=== PATIENT | female | born 1970 | race Caucasian/White ===

== ENCOUNTER 2017-11-02 14:24 | Outpatient (CLI) | payer OTHER ==
[2017-11-02] MEDS ORDERED: Gadobenate Dimeglumine 529 MG/1 ML (20ML VIAL) ONE (14:52)
--- NOTE | 2017-11-02 16:26 | MRI ---
LUMBAR SPINE MRI WITHOUT CONTRAST 11/02/17 HISTORY: Lumbar radiculopathy. COMPARISON: None. TECHNIQUE: Lumbar spine MRI is performed without intravenous gadolinium administration. Multisequential, multipl marjorie imaging is performed. FINDINGS: Appropriate T1 marrow signal intensity of the lumbar vertebrae. Lumbar spine vertebral body height is maintained. There is no fracture. No significant STIR hyperintensity to suggest edema or ligamentous injury. No abnormal enhancement of the vertebral bodies. There is no abnormal enhancement within the thecal sac including the cauda equina or conus medullaris. Symmetric signal intensity to the psoas m uscles. Appropriate signal intensity of the visualized solid organs. Conus medullaris terminates at the mid T 12 level. T12-L1: No significant central canal stenosis or foraminal narrowing. L1-L2: No significant central canal stenosis or neural foraminal narrowing. L2-L3: No significant central canal stenosis or foraminal narrowing. L3-L4: No significant central canal stenosis or foraminal narrowing. L4-L5: Desiccation with mild loss of disc space height. There is a central/left subarticular disc pro trusion. Disc material abuts and displaces the traversing left L5 nerve root with resultant partial o bscuration. There is also some mass effect upon the traversing left S1 nerve root. There is a left si ded hemilaminotomy defect. Minimal scar tissue is suggested. There is some scar tissue extending into the left subarticular zone which also compounds the mass effect and obscuration of the traversing le ft L5 nerve root, just inferior to the disc space. Overall, there is mild central canal stenosis. Mil d posterior element hypertrophy. Mild bilateral foraminal narrowing. L5-S1: Adequate disc hydration. No significant posterior disc abnormality. Minimal ligamentum flavum thickening and facet hypertrophy. No significant central canal stenosis. Neural foramina are patent. There is minimal narrowing of the left subarticular zone without significant mass effect upon the tra versing left S1 nerve root. IMPRESSION: Abnormal signal intensity in the left subarticular tone at the L4-5 level due to disc material as wel l as scar tissue. There is mass effect and obscuration of the traversing left L5 and to a lesser exte nt left S1 nerve root due to disc material and scar tissue. POS: [facility]
== END 2017-11-02 14:25 | disposition home or self-care (01) ==
LOC: TBSIIMAG 14:24
PROVIDERS: ATTEND Neurological Surgery
DX: M54.16 Radiculopathy, lumbar region (principal); R93.7 Abnormal findings on diagnostic imaging of other parts of musculoskeletal system
CPT/HCPCS: 72158; A9579

== ENCOUNTER 2018-04-21 13:58 | Outpatient (CLI) | payer OTHER ==
[2018-04-21 15:25] LABS: Hemoglobin 13.6 g/dL (12.0-16.0); Mean Corpuscular HGB CONC 33.4 g/dL (32.0-36.0); Mean Corpuscular Hemoglobin 28.6 pg (27.0-31.0); Mean Corpuscular Volume 85.4 fL (78.0-98.0); Mean Platelet Volume 7.7 fL (7.4-10.4); Platelet Count 247 thou/uL (130-400); RBC Distribution Width 12.1 % (11.5-14.5); Red Blood Cell (RBC) Count 4.77 mill/uL (4.20-5.40); White Blood Cell (WBC) Count 7.2 thou/uL (4.8-10.8)
[2018-04-21 15:56] LABS: Anion Gap 14 mmol/L (10-20); BUN (Urea Nitrogen) 10 mg/dL (7.0-18.7); Calc. Creatinine Clearance 0 mL/min (70-130); Calcium 9.3 mg/dL (7.8-10.44); Carbon Dioxide 23 mmol/L (22-29); Chloride 95 mmol/L (98-107); Estimated GFR-MDRD 66; Glucose 412 mg/dL (70-105); Potassium 4.8 mmol/L (3.5-5.1); Sodium 127 mmol/L (136-145)
--- NOTE | 2018-04-24 17:44 | EKG ---
Test Reason : Blood Pressure : / mmHG Vent. Rate : 062 BPM Atrial Rate : 062 BPM P-R Int : 136 ms QRS Dur : 086 ms QT Int : 426 ms P-R-T Axes : 035 048 -21 degrees QTc Int : 432 ms Normal sinus rhythm with sinus arrhythmia Anterior infarct , age undetermined T wave abnormality, consider inferior ischemia Abnormal ECG When compared with ECG of 25-SEP-2016 00:06, Anterior infarct is now Present Minimal criteria for Inferior infarct are no longer Present T wave inversion now evident in Inferior leads Confirmed by BRIGID POLANCO (2) on 04/24/2018 5:43:38 PM Referred By: AMBER Confirmed By:BRIGID POLANCO
== END 2018-04-21 13:59 | disposition home or self-care (01) ==
LOC: LABBT 13:58
PROVIDERS: ATTEND Neurological Surgery
DX: Z01.818 Encounter for other preprocedural examination (principal); M54.16 Radiculopathy, lumbar region
CPT/HCPCS: 80048; 85027; 93005; 93010

== ENCOUNTER 2018-04-21 14:00 | Inpatient (IN) | payer OTHER ==
[2018-04-21 14:10] VITALS: BMI 32.8
[2018-04-25] MEDS ORDERED: CEFAZOLIN/Water 2 GM/20 ML SYRINGE ONE (10:04)
[2018-04-25] MEDS ORDERED: Sodium Chloride 0.9% 10 ML ONE (10:35)
[2018-04-25] MEDS ORDERED: Midazolam HCl 2 mg/2 ml Vial ONE (10:44)
[2018-04-25] MEDS ORDERED: Fentanyl 250 MCG/5 ML VIAL ONE (10:44)
[2018-04-25] MEDS ORDERED: Insulin Regular 300 UNITS/3 ML VIAL ONE (10:53)
[2018-04-25] MEDS ORDERED: Promethazine HCl 25 MG/ML VIAL SLOW IVP PRN (12:06)
[2018-04-25] MEDS ORDERED: Ondansetron HCl/PF 4 MG/2 ML Vial IVP PRN ×2 (12:06→14:35)
[2018-04-25] MEDS ORDERED: Promethazine HCl 25 MG/ML VIAL IM PRN ×2 (12:06→14:33)
[2018-04-25] MEDS ORDERED: Fentanyl 100 MCG/2 ML VIAL ONE ×2 (12:29→12:46)
[2018-04-25] MEDS ORDERED: PROPOFOL 200 MG/20 ML VIAL ONE (13:00)
[2018-04-25] MEDS ORDERED: Glycopyrrolate 0.2 MG/ML 5 ML SYRINGE ONE (13:00)
[2018-04-25] MEDS ORDERED: ePHEDrine/0.9% NaCl/PF SYRINGE 50 mg/10 ml ONE (13:00)
[2018-04-25] MEDS ORDERED: Ondansetron HCl/PF 4 MG/2 ML Vial ONE (13:00)
[2018-04-25] MEDS ORDERED: Lidocaine 1% PF 5 ML VIAL ONE (13:00)
--- NOTE | 2018-04-25 13:14 | OP ---
DATE OF PROCEDURE: 04/25/2018 SURGEON: Ej Cortés M.D. PAPER WINDER: Maximino Smiley PA-C PROCEDURE: Left L4-5 laminectomy, facetectomy, foraminotomy, and discectomy, interbody arthrodesis, intravertebral biomechanical device, local morselized autograft, demineralized bone matrix, posterior lateral arthrodesis and pedicle screw instrumentation L4-L5. PROCEDURE IN DETAIL: The patient was brought to the operating room and intubated. She was rolled in the prone position on gel-filled chest rolls. Incision made exposing L4 and L5 and our level was co nfirmed by x-ray. We performed left L4-5 laminectomy, facetectomy, and foraminotomy then removed and a herniated disk. A complete decompression of left L5 was achieved. The disc itself was incised an d debrided and the bony endplates decorticated for the purpose of arthrodesis. An appropriate sized intravertebral biomechanical PEEK device was brought into the field, filled with demineralized bone m atrix, local morselized autograft, and tapped into place securely at L4-5. Next, pedicle screws were placed at left L4 and left L5 using lateral fluoroscopic guidance and the positioning was confirmed with x-ray. Sourav was secured between the screws, connected by nuts which were final tightened. The w ound was then extensively irrigated, immaculate hemostasis was secured. A combination of demineraliz ed bone matrix, local morselized autograft was laid in the right laminar and posterolateral surfaces for the purpose of arthrodesis. Vancomycin powder was applied and the wound was closed in anatomic l frost.
[2018-04-25] MEDS ORDERED: HYDROcodone/Acetaminophen 10/325 mg Tablet PO PRN (14:33)
[2018-04-25] MEDS ORDERED: Promethazine HCl 12.5 MG SUPP PR PRN (14:33)
[2018-04-25] MEDS ORDERED: Promethazine 25 MG TAB PO PRN (14:33)
[2018-04-25] MEDS ORDERED: diphenhydrAMINE 25 MG CAP PO PRN (14:33)
[2018-04-25] MEDS ORDERED: Mag-Al 1200 mg/1200 mg/30 ML UDCUP PO PRN (14:33)
[2018-04-25] MEDS ORDERED: Milk Of Magnesia 30 ML UDCUP PO PRN (14:33)
[2018-04-25] MEDS ORDERED: diphenhydrAMINE 50 MG/ML VIAL IVP PRN (14:33)
[2018-04-25] MEDS ORDERED: tiZANidine HCl 4 MG TAB PO PRN ×2 (14:33→14:53)
[2018-04-25] MEDS ORDERED: traMADol HCl 50 MG TAB PO PRN ×2 (14:33)
[2018-04-25] MEDS ORDERED: Acetaminophen/Codeine 30-300mg Tablet PO PRN (14:46)
[2018-04-25] MEDS ORDERED: Insulin NPH/Reg Insulin Hm 300 UNITS/3 ML VIAL SC PRN (14:49)
[2018-04-25] MEDS: HYDROcodone/Acetaminophen 10/325 mg Tablet PO PRN ×2 (15:10→20:10)
[2018-04-25] MEDS ORDERED: Lisinopril 20 MG TAB PO SCH (15:45)
[2018-04-25] MEDS: Sodium Chloride 0.9% 1,000 ML IV SCH (17:04)
[2018-04-25] MEDS: Pregabalin 50 MG CAP PO SCH (20:12)
[2018-04-25] MEDS: metFORMIN 500 MG TAB PO SCH (20:12)
[2018-04-25] MEDS: Insulin Glargine 45 UNITS in Pre-Filled Syringe 1 EACH SC SCH (20:13)
[2018-04-25] MEDS: Metoprolol Tartrate 100 MG TAB PO SCH (20:13)
[2018-04-25] MEDS: Morphine 4 MG/ML VIAL SLOW IVP PRN (20:22)
[2018-04-25] MEDS ORDERED: Atorvastatin Calcium 40 MG TAB PO SCH (21:00)
[2018-04-25] MEDS ORDERED: traZODone HCl 50 MG TAB PO SCH (21:00)
[2018-04-25] MEDS: CEFAZOLIN/Water 2 GM/20 ML SYRINGE SLOW IVP SCH (22:08)
[2018-04-26] MEDS: Morphine 4 MG/ML VIAL SLOW IVP PRN ×2 (00:51→06:12)
[2018-04-26] MEDS: HYDROcodone/Acetaminophen 10/325 mg Tablet PO PRN ×2 (02:52→08:05)
[2018-04-26] MEDS: Sodium Chloride 0.9% 1,000 ML IV SCH (04:29)
[2018-04-26] MEDS: CEFAZOLIN/Water 2 GM/20 ML SYRINGE SLOW IVP SCH (05:55)
[2018-04-26 07:43] VITALS: BP 113/66; TEMP 98.4
--- NOTE | 2018-04-26 07:51 | DIS ---
DATE OF ADMISSION: 04/25/2018 DATE OF DISCHARGE: 04/26/2018 ATTENDING PHYSICIAN: Dr. Ej Cortés [facility] COURSE: The patient is a 47-year-old female status post L4-L5 decompression and f usion. Her postoperative course was uncomplicated. Her pain was well controlled with p.o. medicatio ns, she was tolerating regular diet, and she was voiding appropriately. The following morning, there was small amount of dark red blood on the dressing, but there appears to be no active drainage. I d iscussed incisional care with b.i.d. dressing changes and anticipate this will continue to resolve wi th time. I have discussed home care precautions. We will plan to follow up with the patient carmelina garrison 2 weeks in the office. She has been provided with scripts for hydrocodone, Zanaflex and Kefle x. Please reach out to Neurosurgery for additional questions or concerns.
[2018-04-26] MEDS: Pregabalin 50 MG CAP PO SCH (08:04)
[2018-04-26] MEDS: metFORMIN 500 MG TAB PO SCH (08:05)
[2018-04-26] MEDS: Metoprolol Tartrate 100 MG TAB PO SCH (08:06)
[2018-04-26] MEDS: Insulin Glargine 45 UNITS in Pre-Filled Syringe 1 EACH SC SCH (08:07)
[2018-04-26] MEDS ORDERED: Lisinopril 20 MG TAB PO SCH (09:00)
== END 2018-04-26 09:15 | disposition home or self-care (01) | DRG 455 ==
LOC: SURG A 04-25 07:53
PROVIDERS: ADMIT Neurological Surgery; ATTEND Neurological Surgery
PROC: 01NB3ZZ Release Lumbar Nerve, Percutaneous Approach (ICD-10-PCS; principal; 2018-04-25)
PROC: 0SG03AJ Fusion of Lumbar Vertebral Joint with Interbody Fusion Device, Posterior Approach, Anterior Column, Percutaneous Approach (ICD-10-PCS; 2018-04-25)
PROC: 0SG03J1 Fusion of Lumbar Vertebral Joint with Synthetic Substitute, Posterior Approach, Posterior Column, Percutaneous Approach (ICD-10-PCS; 2018-04-25)
PROC: 0SB23ZZ Excision of Lumbar Vertebral Disc, Percutaneous Approach (ICD-10-PCS; 2018-04-25)
DX: M54.16 Radiculopathy, lumbar region (principal); M51.26 Other intervertebral disc displacement, lumbar region
CPT/HCPCS: 36416; 76001; A4216; C1713; C1768; J1815; J2250; J2270; J3010; J3370; J3490

== ENCOUNTER 2018-05-11 09:51 | Outpatient (CLI) | payer OTHER ==
--- NOTE | 2018-05-11 11:33 | RAD ---
LUMBAR SPINE TWO VIEWS: HISTORY: A 47-year-old female with a history of low back pain and lumbar degenerative disk disease. Follow up surgery. FINDINGS: Left-sided pedicle screws are noted at L4 and L5 with an intradiskal prosthesis. No significant arnulfo lignment. IMPRESSION: 1. Mild generalized spondylosis. 2. Postoperative pedicle screw placement changes at L4-L5 with associated laminectomy and intradiska l prosthesis. 3. No malalignment. POS: [facility]
== END 2018-05-11 09:52 | disposition home or self-care (01) ==
LOC: TBSIIMAG 09:51
PROVIDERS: ATTEND Neurological Surgery
DX: M51.36 Other intervertebral disc degeneration, lumbar region (principal); M47.896 Other spondylosis, lumbar region; Z98.1 Arthrodesis status
CPT/HCPCS: 72100

== ENCOUNTER 2018-06-15 14:03 | Outpatient (CLI) | payer OTHER ==
--- NOTE | 2018-06-15 15:20 | RAD ---
LUMBAR SPINE TWO VIEWS: History: Intervertebral disc degeneration. Low back pain. Comparison: 05-11-18 FINDINGS: Screws and rods are seen on the left at L4-5. Interbody implant at L4-5. The posterior markers on this interbody implant show evidence of posterior migration when compared to the exam of 05-11-18. The most posterior marker now resides within the spinal canal. No other significant change. IMPRESSION: 1. Post-operative changes again noted. There has been posterior migration of the interbody implant at L4-5 as described above. POS: [facility]
== END 2018-06-15 14:04 | disposition home or self-care (01) ==
LOC: TBSIIMAG 14:03
PROVIDERS: ATTEND Neurological Surgery
DX: M51.36 Other intervertebral disc degeneration, lumbar region (principal); T84.428A Displacement of other internal orthopedic devices, implants and grafts, initial encounter
CPT/HCPCS: 72100

== ENCOUNTER 2018-07-11 08:06 | Inpatient (IN) | payer OTHER ==
[2018-07-08 11:53] VITALS: BMI 33.3
[2018-07-11] MEDS ORDERED: CEFAZOLIN 2 GM/50 ML BAG ONE (08:34)
[2018-07-11] MEDS ORDERED: Insulin Regular 300 UNITS/3 ML VIAL ONE (09:34)
[2018-07-11 09:38] LABS: Hemoglobin 14.5 g/dL (12.0-16.0); Mean Corpuscular HGB CONC 33.5 g/dL (32.0-36.0); Mean Corpuscular Hemoglobin 28.2 pg (27.0-31.0); Mean Corpuscular Volume 84.1 fL (78.0-98.0); Mean Platelet Volume 7.9 fL (7.4-10.4); Platelet Count 247 thou/uL (130-400); RBC Distribution Width 11.5 % (11.5-14.5); Red Blood Cell (RBC) Count 5.13 mill/uL (4.20-5.40); White Blood Cell (WBC) Count 7.6 thou/uL (4.8-10.8)
[2018-07-11 09:53] LABS: Anion Gap 15 mmol/L (10-20); BUN (Urea Nitrogen) 13 mg/dL (7.0-18.7); Calc. Creatinine Clearance 121 mL/min (70-130); Calcium 9.6 mg/dL (7.8-10.44); Carbon Dioxide 28 mmol/L (22-29); Chloride 93 mmol/L (98-107); Estimated GFR-MDRD 68; Glucose 488 mg/dL (70-105); Potassium 4.6 mmol/L (3.5-5.1); Sodium 131 mmol/L (136-145)
[2018-07-11] MEDS ORDERED: Sodium Chloride 0.9% 10 ML ONE (11:26)
[2018-07-11] MEDS ORDERED: Fentanyl 100 MCG/2 ML VIAL ONE ×4 (11:36→14:51)
[2018-07-11] MEDS ORDERED: KETAMINE 100 MG/ML (5ML VIAL) ONE (12:26)
[2018-07-11] MEDS ORDERED: PACU-Morphine 4MG/ML VIAL SLOW IVP PRN (13:12)
[2018-07-11] MEDS ORDERED: Meperidine HCl/PF 25 MG/ML VIAL SLOW IVP PRN (13:12)
[2018-07-11] MEDS ORDERED: Ondansetron HCl/PF 4 MG/2 ML Vial IVP PRN (13:12)
[2018-07-11] MEDS ORDERED: Morphine Sulfate 2 MG/ML SYRINGE SLOW IVP PRN (13:12)
[2018-07-11] MEDS ORDERED: HYDROmorphone 2 MG/ML VIAL SLOW IVP PRN (13:12)
[2018-07-11] MEDS ORDERED: Promethazine HCl 25 MG/ML VIAL IM PRN ×2 (13:12→14:32)
[2018-07-11] MEDS ORDERED: Promethazine HCl 25 MG/ML VIAL SLOW IVP PRN (13:12)
[2018-07-11] MEDS ORDERED: HYDROmorphone 2 MG/ML VIAL ONE (13:32)
[2018-07-11] MEDS ORDERED: Promethazine 25 MG TAB PO PRN (14:32)
[2018-07-11] MEDS ORDERED: diphenhydrAMINE 50 MG/ML VIAL IVP PRN (14:32)
[2018-07-11] MEDS ORDERED: diphenhydrAMINE 25 MG CAP PO PRN (14:32)
[2018-07-11] MEDS ORDERED: Ondansetron PF 4 MG/2 ML Vial IM PRN (14:32)
[2018-07-11] MEDS ORDERED: Milk Of Magnesia 30 ML UDCUP PO PRN (14:32)
[2018-07-11] MEDS ORDERED: traMADol HCl 50 MG TAB PO PRN ×2 (14:32)
[2018-07-11] MEDS ORDERED: Mag-Al 1200 mg/1200 mg/30 ML UDCUP PO PRN (14:32)
[2018-07-11] MEDS ORDERED: HYDROcodone/Acetaminophen 10/325 mg Tablet PO PRN (14:32)
[2018-07-11] MEDS ORDERED: Promethazine HCl 12.5 MG SUPP PR PRN (14:32)
--- NOTE | 2018-07-11 14:37 | OP ---
DATE OF PROCEDURE: 07/11/2018 [facility] [facility] DIRECTOR: [place]. PROCEDURES PERFORMED: Removal of hardware at L5-S1, exploration of spinal fusion at L5-S1, pedicle screw instrumentation at L5-S1, BMP cancellous bone chips. DESCRIPTION OF PROCEDURE: The patient was brought to the operating room and intubated. She was rolled in prone position on gel flat chest rolls. The previous incision was reopened and the wound exposed bilaterally. We explored the spinal fusion. There was no evidence of any bony fusion. We explored the hardware and found the left L5 screw to be loose. We removed the nuts and rods and removed the left L5 screw. We then removed the L4-L5 interbody device, which appeared to have migrated slightly. We next placed a large diameter and longer in length left L5 screw with good purchase. This was secured by damien to the L4 screws and connected by nuts, which were final tightened. The posterolateral surfaces were prepared for the first arthrodesis and a combination of BMP on Gelfoam with cancellous bone chips was laid over the lateral and posterolateral surfaces on the right for the first arthrodesis. Vancomycin powder was applied and the wound was closed in anatomic layers. Job ID: [id number]
[2018-07-11] MEDS: Sodium Chloride 0.9% 1,000 ML IV SCH ×2 (15:58→20:35)
[2018-07-11] MEDS: HYDROcodone/Acetaminophen 10/325 mg Tablet PO PRN ×2 (16:13→21:56)
[2018-07-11] MEDS: tiZANidine HCl 4 MG TAB PO PRN (19:23)
[2018-07-11] MEDS ORDERED: Dextrose 50% Abboject 50 ML SYRINGE IVP PRN (19:42)
[2018-07-11] MEDS ORDERED: Dextrose 5% in Water 1,000 ML IV PRN (19:42)
[2018-07-11] MEDS: CEFAZOLIN 2 GM/50 ML-DEXTROSE 2 GM in Premix Bag 1 BAG IVPB SCH (20:24)
[2018-07-11] MEDS: Morphine 4 MG/ML VIAL SLOW IVP PRN (20:27)
[2018-07-11] MEDS: Insulin Regular 300 UNITS/3 ML VIAL SC PRN (21:52)
[2018-07-12] MEDS: Morphine 4 MG/ML VIAL SLOW IVP PRN ×8 (00:28→20:25)
[2018-07-12] MEDS: tiZANidine HCl 4 MG TAB PO PRN (00:29)
[2018-07-12] MEDS: CEFAZOLIN 2 GM/50 ML-DEXTROSE 2 GM in Premix Bag 1 BAG IVPB SCH (03:15)
[2018-07-12] MEDS: HYDROcodone/Acetaminophen 10/325 mg Tablet PO PRN ×3 (03:47→21:57)
[2018-07-12] MEDS ORDERED: tiZANidine HCl 4 MG TAB PO PRN (04:14)
[2018-07-12] MEDS ORDERED: Insulin NPH/Reg Insulin Hm 300 UNITS/3 ML VIAL SC SCH (04:15)
[2018-07-12] MEDS ORDERED: Metoprolol Tartrate 50 MG TAB PO SCH (04:30)
[2018-07-12] MEDS ORDERED: Pregabalin 50 MG CAP PO SCH (04:30)
[2018-07-12] MEDS: Insulin Regular 300 UNITS/3 ML VIAL SC PRN ×3 (07:04→18:48)
[2018-07-12] MEDS ORDERED: Diabetic Tussin 200 MG/10 ML UDCUP PO PRN (07:44)
[2018-07-12] MEDS ORDERED: Senokot S 8.6-50 MG TAB PO PRN (07:44)
[2018-07-12] MEDS ORDERED: Cepastat Lozenges 1 LOZ PO PRN (07:44)
[2018-07-12] MEDS ORDERED: Artificial Tears 18 DROP/0.9 ML EA EYE PRN (07:44)
[2018-07-12] MEDS ORDERED: Dextrose 5% in Water 1,000 ML IV PRN (07:44)
[2018-07-12] MEDS ORDERED: Loperamide HCl 2 MG CAP PO PRN (07:44)
[2018-07-12] MEDS ORDERED: hydrALAZINE 20 MG/ML VIAL SLOW IVP PRN (07:44)
[2018-07-12] MEDS ORDERED: Insulin Regular 300 UNITS/3 ML VIAL SC PRN (07:44)
[2018-07-12] MEDS ORDERED: Eucerin (Mineral Oil/Petrolatum,White) 30 gm Jar TOP PRN (07:44)
[2018-07-12] MEDS ORDERED: Bisacodyl 5 MG TAB PO PRN (07:44)
[2018-07-12] MEDS: metFORMIN 500 MG TAB PO SCH ×2 (08:20→18:28)
[2018-07-12] MEDS: Lisinopril 20 MG TAB PO SCH (08:20)
[2018-07-12] MEDS ORDERED: Non-Formulary Item 1 EACH (Insulin Glargine,Hum.Rec.Anlog [Lantus Solostar] 45 UNIT) SC SCH (09:00)
[2018-07-12] MEDS: Insulin Glargine 45 UNITS in Pre-Filled Syringe 1 EACH SC SCH ×2 (09:21→21:50)
--- NOTE | 2018-07-12 11:36 | PDOC.PN ---
- Subjective Encounter Start Date: 07/12/18 Encounter Start Time: 06:50 -: old records requested/rev Patient seen and examined. No new complaints. No overnight events consulted for medical management - Objective Resuscitation Status - Order Detail: 07/12/18 07:42 Resuscitation Status Routine Resuscitation Status: FULL: Full Resuscitation MAR Reviewed: Yes Vital Signs & Weight: Vital Signs (12 hours) Temp Pulse Resp BP BP Pulse Ox 07/12/18 11:00 98.0 F 77 18 194/90 H 95 07/12/18 08:59 98 07/12/18 07:44 98.8 F 75 16 165/82 H 95 07/12/18 03:32 97.8 F 83 20 169/72 H 97 07/12/18 00:00 98.4 F 79 18 165/76 H 95 Weight Weight 219 lb I&O: 07/11/18 07/12/18 07/13/18 06:59 06:59 06:59 Intake Total 741 1860 Balance 741 1860 Result Diagrams: 07/11/18 09:09 07/11/18 09:09 Additional Labs: Accuchecks 07/12/18 07/12/18 07/11/18 10:59 06:58 21:23 POC Glucose 334 H 409 H 400 H 07/11/18 07/11/18 07/11/18 17:33 13:01 12:04 POC Glucose 302 H 210 H 186 H 07/11/18 07/11/18 07/11/18 11:18 10:42 10:11 POC Glucose 181 H 228 H 341 H 07/11/18 09:13 POC Glucose 449 H Phys Exam - Physical Examination Constitutional: NAD HEENT: PERRLA, moist MMs, sclera anicteric Neck: no JVD, supple Respiratory: no wheezing, no rales, no rhonchi Cardiovascular: RRR, no significant murmur, no rub Gastrointestinal: soft, non-tender, no distention, positive bowel sounds Musculoskeletal: no edema, pulses present Neurological: non-focal, normal sensation, moves all 4 limbs Psychiatric: normal affect, A&O x 3 Skin: no rash, normal turgor Dx/Plan (1) S/P hardware removal Code(s): Z98.890 - OTHER SPECIFIED POSTPROCEDURAL STATES Status: Acute (2) Anxiety and depression Code(s): F41.9 - ANXIETY DISORDER, UNSPECIFIED; F32.9 - MAJOR DEPRESSIVE DISORDER, SINGLE EPISODE, UNSPECIFIED Status: Chronic (3) Chronic low back pain Code(s): M54.5 - LOW BACK PAIN; G89.29 - OTHER CHRONIC PAIN Status: Chronic (4) Diabetes type 2, controlled Code(s): E11.9 - TYPE 2 DIABETES MELLITUS WITHOUT COMPLICATIONS Status: Chronic (5) Dyslipidemia Code(s): E78.5 - HYPERLIPIDEMIA, UNSPECIFIED Status: Chronic (6) GERD (gastroesophageal reflux disease) Code(s): K21.9 - GASTRO-ESOPHAGEAL REFLUX DISEASE WITHOUT ESOPHAGITIS Status: Chronic (7) Hypertension Code(s): I10 - ESSENTIAL (PRIMARY) HYPERTENSION Status: Chronic (8) Obesity (BMI 30.0-34.9) Code(s): E66.9 - OBESITY, UNSPECIFIED Status: Chronic (9) Tobacco abuse Code(s): Z72.0 - TOBACCO USE Status: Chronic - Plan cont current plan of care, plan discussed w/ family, PT/OT * home medication started * started levemir * will control diabetes * discussed with family * pain controlled * counselled to avoid smoking * medication reviewed as below * symptomatic treatment * code status addressed and she is full code. Review of Systems - Review of Systems Constitutional: negative: fever, chills, sweats, weakness, malaise, other Eyes: negative: Pain, Vision Change, Conjunctivae Inflammation, Eyelid Inflammation, Redness, Other ENT: negative: Ear Pain, Ear Discharge, Nose Pain, Nose Discharge, Nose Congestion, Mouth Pain, Mouth Swelling, Throat Pain, Throat Swelling, Other Respiratory: negative: Cough, Dry, Shortness of Breath, Hemoptysis, SOB with Excertion, Pleuritic Pain, Sputum, Wheezing Cardiovascular: negative: chest pain, palpitations, orthopnea, paroxysmal nocturnal dyspnea, edema, light headedness, other Gastrointestinal: negative: Nausea, Vomiting, Abdominal Pain, Diarrhea, Constipation, Melena, Hematochezia, Other Genitourinary: negative: Dysuria, Frequency, Incontinence, Hematuria, Retention , Other Musculoskeletal: Back Pain. negative: Neck Pain, Shoulder Pain, Arm Pain, Hand Pain, Leg Pain, Foot Pain, Other - Medications/Allergies Allergies/Adverse Reactions: Allergies Allergy/AdvReac Type Severity Reaction Status Date / Time lorazepam [From Ativan] Allergy Intermediate Verified 07/08/18 11:54 Medications: Current Medications Hydrocodone Bitart/Acetaminophen ([place] 10/325) 1 tab PO Q4H PRN PRN Reason: PAIN (1-3) Hydrocodone Bitart/Acetaminophen ([place] 10/325) 2 tab PO Q4H PRN PRN Reason: PAIN (4-6) Last Admin: 07/12/18 03:47 Dose: 2 tab Al Hydroxide/Mg Hydroxide (Maalox) 30 ml PO Q4H PRN PRN Reason: Heartburn or Indigestion Artificial Tears (Tears Naturale) 2 drop EA EYE PRN PRN PRN Reason: Dry Eyes Atorvastatin Calcium (Lipitor) 80 mg PO HS [facility] Bisacodyl (Dulcolax) 10 mg PO DAILYPRN PRN PRN Reason: Constipation Dextrose/Water (Dextrose 50%) 25 gm IVP PRN PRN PRN Reason: HYPOGLYCEMIA PROTOCOL Diphenhydramine HCl (Benadryl) 25 mg PO Q6H PRN PRN Reason: Itching Last Admin: 07/11/18 20:35 Dose: 25 mg Diphenhydramine HCl (Benadryl) 25 mg IVP Q6H PRN PRN Reason: Itching Glucagon (Glucagon) 1 mg IM PRN PRN PRN Reason: HYPOGLYCEMIA PROTOCOL Guaifenesin (Robitussin Sf) 200 mg PO Q4H PRN PRN Reason: Cough Hydralazine HCl (Apresoline) 10 mg SLOW IVP Q4H PRN PRN Reason: SBP > 180 and HR < 70 Insulin Glargine 45 units/ (Miscellaneous Medication) 0.45 mls @ 0 mls/hr SC BID [facility] Last Admin: 07/12/18 09:21 Dose: 0.45 mls Dextrose/Water (D5w) 1,000 mls @ 0 mls/hr IV .Q0M PRN PRN Reason: Hypoglycemia Insulin Human Isoph/Insulin Regular (Humulin 70/30) 0 units SC .ASDIR [facility] Insulin Human Regular (Humulin R) 0 units SC .MODERATE SLIDING SC PRN; Protocol PRN Reason: MODERATE SLIDING SCALE Last Admin: 07/12/18 07:04 Dose: 10 units Insulin Human Regular (Humulin R) 0 units SC .BEDTIME SLIDING SC PRN PRN Reason: Bedtime Correctional Scale Lisinopril (Zestril) 40 mg PO DAILY [facility] Last Admin: 07/12/18 08:20 Dose: 40 mg Loperamide HCl (Imodium) 2 mg PO PRN PRN PRN Reason: Diarrhea/Loose Stools [facility] Last Admin: 07/12/18 08:20 Dose: 1,000 mg Metoprolol Tartrate (Lopressor) 100 mg PO BID [facility] Mineral Oil/White Petrolatum (Eucerin Cream) 0 gm TOP BIDPRN PRN PRN Reason: Dry Skin Morphine Sulfate (Morphine) 2 mg SLOW IVP Q1H PRN PRN Reason: Moderate Breakthrough Pain Morphine Sulfate (Morphine) 4 mg SLOW IVP Q1H PRN PRN Reason: SEVERE BREAKTHROUGH PAIN Last Admin: 07/12/18 11:18 Dose: 4 mg Ondansetron HCl (Zofran) 4 mg IM Q24H PRN PRN Reason: Nausea/Vomiting Pantoprazole Sodium (Protonix) 40 mg PO [facility] Pregabalin (Lyrica) 200 mg PO BID [facility] Promethazine HCl (Phenergan) 12.5 mg IM Q4H PRN PRN Reason: Nausea/Vomiting Promethazine HCl (Phenergan) 12.5 mg PO Q4H PRN PRN Reason: Nausea/Vomiting Promethazine HCl (Phenergan Suppository) 12.5 mg [place] Q4H PRN PRN Reason: Nausea/Vomiting Senna/Docusate Sodium (Senokot S) 2 tab PO BID PRN PRN Reason: Constipation Sodium Chloride (Flush - Normal Saline) 10 ml IVF Q12HR [facility] Last Admin: 07/12/18 11:18 Dose: 10 ml Sodium Chloride (Flush - Normal Saline) 10 ml IVF PRN PRN PRN Reason: Saline Flush Throat Lozenges (Cepastat Lozenges) 1 melanie PO Q2H PRN PRN Reason: Sore Throat Tizanidine HCl (Zanaflex) 4 mg PO Q6H PRN PRN Reason: MUSCLE SPASM Last Admin: 07/12/18 00:29 Dose: 4 mg Tramadol HCl (Ultram) 50 mg PO Q6H PRN PRN Reason: PAIN (1-3) Tramadol HCl (Ultram) 100 mg PO Q6H PRN PRN Reason: PAIN (4-6) Trazodone HCl (Desyrel) 100 mg PO HS [facility] Venlafaxine HCl (Effexor) 75 mg PO BID [facility] Last Admin: 07/12/18 09:20 Dose: 75 mg
[2018-07-12] MEDS: Pregabalin 50 MG CAP PO SCH (20:24)
[2018-07-12] MEDS: Metoprolol Tartrate 50 MG TAB PO SCH (20:25)
[2018-07-12] MEDS ORDERED: traZODone HCl 50 MG TAB PO SCH (21:00)
[2018-07-12] MEDS ORDERED: Atorvastatin Calcium 40 MG TAB PO SCH (21:00)
[2018-07-13] MEDS: Morphine 4 MG/ML VIAL SLOW IVP PRN ×2 (01:13→06:43)
[2018-07-13] MEDS: Insulin Regular 300 UNITS/3 ML VIAL SC PRN (06:44)
[2018-07-13 08:33] VITALS: BP 98/59; TEMP 98.1
--- NOTE | 2018-07-13 09:46 | DIS ---
DATE OF ADMISSION: 07/11/2018 DATE OF DISCHARGE: 07/13/2018 DISCHARGE DISPOSITION: Home. PRIMARY DISCHARGE DIAGNOSIS: Status post lumbar fusion revision and hardware removal. SECONDARY DISCHARGE DIAGNOSES: 1. Anxiety. 2. Depression. 3. Chronic low back pain. 4. Diabetes type 2. 5. Dyslipidemia. 6. Gastroesophageal reflux disease. 7. Hypertension. 8. Obesity with BMI 33. 9. Tobacco abuse disorder. PRIMARY PROCEDURE/OPERATION: Removal of hardware L5-S1 and exploration of spinal fusion. LABORATORY DATA: Significant labs: WBC 7.6, hemoglobin 14.5, platelet 247. Sodium 131, potassium 4.6, BUN 13, creatinine 0.89, calcium 9.6. DISCHARGE MEDICATIONS: 1. Lipitor 80 mg p.o. at bedtime. 2. Aspirin 81 mg daily (hold this medication until cleared by neurosurgeon). 3. [place] 1 tablet q.6 hours p.r.n. 4. NovoLog 70/30 as per sliding scale. 5. Lantus insulin 45 units subcu b.i.d. 6. Lisinopril 40 mg daily. 7. Metformin 1000 mg p.o. b.i.d. 8. Lopressor 100 mg p.o. b.i.d. 9. Protonix 40 mg p.o. at bedtime. 10. Lyrica 200 mg p.o. b.i.d. 11. Zanaflex 4 mg q.6 hours p.r.n. 12. Trazodone 100 mg p.o. at bedtime. 13. Venlafaxine 75 mg p.o. b.i.d. CONTRAINDICATION: None. CODE STATUS: Full code. INPATIENT DELIVERY CREW WORKER: Dr. Cortés was primary while in the hospital. Sound Team was consulted for medical co-management. TEST RESULT PENDING ON DISCHARGE: None. ALLERGIES: LORAZEPAM. DISCHARGE PLAN: Post hospital, the patient will follow up with primary care physician Dr. Francisco Eden in one week and the patient will make appointment with Dr. Cortés as instructed. HOSPITAL COURSE: A 47-year-old female with above mentioned medical problem, who was electively admitted by Dr. Cortés. The patient underwent lumbar fusion revision with hardware removal. Postoperatively, Surgical Floor Sound Team was consulted for medical co-management. While in the hospital, the patient's medical problem remained stable. We continued with selected home medication while in the hospital as well as on discharge. Her pain was controlled with pain medication. Initially, her blood sugar was out of control, because she did not start her insulin, but after starting her insulin, her blood sugar started improving. Today, the patient is planned for discharge by primary team. I have seen and examined the patient at bedside today. Plan of care discussed with the patient and family member. REVIEW OF SYSTEMS: Reviewed and negative. PHYSICAL EXAMINATION: VITAL SIGNS: Currently, temperature 98.1, pulse 67, respiratory rate 16, saturation 93% on room air, blood pressure 111/57, weight 219 pounds. GENERAL: The patient is currently alert, awake, in no obvious acute distress. HEAD: Normocephalic, atraumatic. Eyes; pupils round, reactive to light. Extraocular muscle intact. ENT: Oropharynx within normal limits. Moist mucous membranes. No oral lesion. No pharyngeal erythema. No exudate. NECK: Supple. No JVD. No thyromegaly. No carotid bruit. LUNGS: Clear without any rhonchi or rales. CARDIAC: S1, S2 regular without any murmur. ABDOMEN: Soft and benign. EXTREMITIES: No edema. NEUROLOGIC: Nonfocal examination. CONDITION ON TRANSFER: The patient is medically stable for discharge today. Job ID: [id number]
--- NOTE | 2018-07-13 10:12 | PDOC.PN ---
- Subjective Encounter Start Date: 07/13/18 Encounter Start Time: 09:30 -: old records requested/rev Patient seen and examined. No new complaints. No overnight events - Objective Resuscitation Status - Order Detail: 07/12/18 07:42 Resuscitation Status Routine Resuscitation Status: FULL: Full Resuscitation MAR Reviewed: Yes Vital Signs & Weight: Vital Signs (12 hours) Temp Pulse Resp BP BP Pulse Ox 07/13/18 09:47 18 96 07/13/18 08:00 98.1 F 67 16 98/59 L 93 L 07/13/18 03:47 97.7 F 65 18 98/58 L 95 07/13/18 01:10 76 111/57 L Weight Weight 219 lb I&O: 07/12/18 07/13/18 07/14/18 06:59 06:59 06:59 Intake Total 741 2660 Balance 741 2660 Result Diagrams: 07/11/18 09:09 07/11/18 09:09 Additional Labs: Accuchecks 07/13/18 07/12/18 07/12/18 05:59 20:30 16:18 POC Glucose 238 H 239 H 195 H 07/12/18 10:59 POC Glucose 334 H Phys Exam - Physical Examination Constitutional: NAD HEENT: PERRLA, moist MMs, sclera anicteric Neck: no JVD, supple Respiratory: no wheezing, no rales, no rhonchi Cardiovascular: RRR, no significant murmur, no rub Gastrointestinal: soft, non-tender, no distention, positive bowel sounds Musculoskeletal: no edema, pulses present Neurological: non-focal, normal sensation Lymphatic: no nodes Psychiatric: normal affect, A&O x 3 Skin: no rash, normal turgor Dx/Plan (1) S/P hardware removal Code(s): Z98.890 - OTHER SPECIFIED POSTPROCEDURAL STATES Status: Acute (2) Anxiety and depression Code(s): F41.9 - ANXIETY DISORDER, UNSPECIFIED; F32.9 - MAJOR DEPRESSIVE DISORDER, SINGLE EPISODE, UNSPECIFIED Status: Chronic (3) Chronic low back pain Code(s): M54.5 - LOW BACK PAIN; G89.29 - OTHER CHRONIC PAIN Status: Chronic (4) Diabetes type 2, controlled Code(s): E11.9 - TYPE 2 DIABETES MELLITUS WITHOUT COMPLICATIONS Status: Chronic (5) Dyslipidemia Code(s): E78.5 - HYPERLIPIDEMIA, UNSPECIFIED Status: Chronic (6) GERD (gastroesophageal reflux disease) Code(s): K21.9 - GASTRO-ESOPHAGEAL REFLUX DISEASE WITHOUT ESOPHAGITIS Status: Chronic (7) Hypertension Code(s): I10 - ESSENTIAL (PRIMARY) HYPERTENSION Status: Chronic (8) Obesity (BMI 30.0-34.9) Code(s): E66.9 - OBESITY, UNSPECIFIED Status: Chronic (9) Tobacco abuse Code(s): Z72.0 - TOBACCO USE Status: Chronic - Plan cont current plan of care * medication reviewed as below * symptomatic treatment * see discharge aaron. Review of Systems - Review of Systems ENT: negative: Ear Pain, Ear Discharge, Nose Pain, Nose Discharge, Nose Congestion, Mouth Pain, Mouth Swelling, Throat Pain, Throat Swelling, Other Respiratory: negative: Cough, Dry, Shortness of Breath, Hemoptysis, SOB with Excertion, Pleuritic Pain, Sputum, Wheezing Cardiovascular: negative: chest pain, palpitations, orthopnea, paroxysmal nocturnal dyspnea, edema, light headedness, other Gastrointestinal: negative: Nausea, Vomiting, Abdominal Pain, Diarrhea, Constipation, Melena, Hematochezia, Other Genitourinary: negative: Dysuria, Frequency, Incontinence, Hematuria, Retention , Other Musculoskeletal: negative: Neck Pain, Shoulder Pain, Arm Pain, Back Pain, Hand Pain, Leg Pain, Foot Pain, Other Skin: negative: Rash, Lesions, Howie, Bruising, Other - Medications/Allergies Allergies/Adverse Reactions: Allergies Allergy/AdvReac Type Severity Reaction Status Date / Time lorazepam [From Ativan] Allergy Intermediate Verified 07/08/18 11:54 Medications: Current Medications Hydrocodone Bitart/Acetaminophen ([employer] 10/325) 1 tab PO Q4H PRN PRN Reason: PAIN (1-3) Hydrocodone Bitart/Acetaminophen ([employer] 10/325) 2 tab PO Q4H PRN PRN Reason: PAIN (4-6) Last Admin: 07/12/18 21:57 Dose: 2 tab Al Hydroxide/Mg Hydroxide (Maalox) 30 ml PO Q4H PRN PRN Reason: Heartburn or Indigestion Artificial Tears (Tears Naturale) 2 drop EA EYE PRN PRN PRN Reason: Dry Eyes Atorvastatin Calcium (Lipitor) 80 mg PO HS [facility] Last Admin: 07/12/18 20:23 Dose: 80 mg Bisacodyl (Dulcolax) 10 mg PO DAILYPRN PRN PRN Reason: Constipation Dextrose/Water (Dextrose 50%) 25 gm IVP PRN PRN PRN Reason: HYPOGLYCEMIA PROTOCOL Diphenhydramine HCl (Benadryl) 25 mg PO Q6H PRN PRN Reason: Itching Last Admin: 07/11/18 20:35 Dose: 25 mg Diphenhydramine HCl (Benadryl) 25 mg IVP Q6H PRN PRN Reason: Itching Glucagon (Glucagon) 1 mg IM PRN PRN PRN Reason: HYPOGLYCEMIA PROTOCOL Guaifenesin (Robitussin Sf) 200 mg PO Q4H PRN PRN Reason: Cough Hydralazine HCl (Apresoline) 10 mg SLOW IVP Q4H PRN PRN Reason: SBP > 180 and HR < 70 Insulin Glargine 45 units/ (Miscellaneous Medication) 0.45 mls @ 0 mls/hr SC BID [facility] Last Admin: 07/12/18 21:50 Dose: 0.45 mls Dextrose/Water (D5w) 1,000 mls @ 0 mls/hr IV .Q0M PRN PRN Reason: Hypoglycemia Insulin Human Regular (Humulin R) 0 units SC .MODERATE SLIDING SC PRN; Protocol PRN Reason: MODERATE SLIDING SCALE Last Admin: 07/13/18 06:44 Dose: 4 units Insulin Human Regular (Humulin R) 0 units SC .BEDTIME SLIDING SC PRN PRN Reason: Bedtime Correctional Scale Lisinopril (Zestril) 40 mg PO DAILY [facility] Last Admin: 07/12/18 08:20 Dose: 40 mg Loperamide HCl (Imodium) 2 mg PO PRN PRN PRN Reason: Diarrhea/Loose Stools Metformin HCl (Glucophage) 1,000 mg PO BID-[facility] Last Admin: 07/12/18 18:28 Dose: 1,000 mg Metoprolol Tartrate (Lopressor) 100 mg PO BID [facility] Last Admin: 07/12/18 20:25 Dose: 100 mg Mineral Oil/White Petrolatum (Eucerin Cream) 0 gm TOP BIDPRN PRN PRN Reason: Dry Skin Morphine Sulfate (Morphine) 2 mg SLOW IVP Q1H PRN PRN Reason: Moderate Breakthrough Pain Morphine Sulfate (Morphine) 4 mg SLOW IVP Q1H PRN PRN Reason: SEVERE BREAKTHROUGH PAIN Last Admin: 07/13/18 06:43 Dose: 4 mg Ondansetron HCl (Zofran) 4 mg IM Q24H PRN PRN Reason: Nausea/Vomiting Pantoprazole Sodium (Protonix) 40 mg PO HS [facility] Last Admin: 07/12/18 20:25 Dose: 40 mg Pregabalin (Lyrica) 200 mg PO BID [facility] Last Admin: 07/12/18 20:24 Dose: 200 mg Promethazine HCl (Phenergan) 12.5 mg IM Q4H PRN PRN Reason: Nausea/Vomiting Promethazine HCl (Phenergan) 12.5 mg PO Q4H PRN PRN Reason: Nausea/Vomiting Promethazine HCl (Phenergan Suppository) 12.5 mg MA Q4H PRN PRN Reason: Nausea/Vomiting Senna/Docusate Sodium (Senokot S) 2 tab PO BID PRN PRN Reason: Constipation Sodium Chloride (Flush - Normal Saline) 10 ml IVF Q12HR [facility] Last Admin: 07/12/18 11:18 Dose: 10 ml Sodium Chloride (Flush - Normal Saline) 10 ml IVF PRN PRN PRN Reason: Saline Flush Throat Lozenges (Cepastat Lozenges) 1 melanie PO Q2H PRN PRN Reason: Sore Throat Tizanidine HCl (Zanaflex) 4 mg PO Q6H PRN PRN Reason: MUSCLE SPASM Last Admin: 07/12/18 00:29 Dose: 4 mg Tramadol HCl (Ultram) 50 mg PO Q6H PRN PRN Reason: PAIN (1-3) Tramadol HCl (Ultram) 100 mg PO Q6H PRN PRN Reason: PAIN (4-6) Trazodone HCl (Desyrel) 100 mg PO HS [facility] Last Admin: 07/12/18 21:50 Dose: 100 mg Venlafaxine HCl (Effexor) 75 mg PO BID [facility] Last Admin: 07/12/18 20:23 Dose: 75 mg
[2018-07-13] MEDS: HYDROcodone/Acetaminophen 10/325 mg Tablet PO PRN (10:23)
[2018-07-13] MEDS: Pregabalin 50 MG CAP PO SCH (10:25)
[2018-07-13] MEDS: metFORMIN 500 MG TAB PO SCH (10:26)
[2018-07-13] MEDS: Lisinopril 20 MG TAB PO SCH (10:28)
[2018-07-13] MEDS: Metoprolol Tartrate 50 MG TAB PO SCH (10:29)
[2018-07-13] MEDS: Insulin Glargine 45 UNITS in Pre-Filled Syringe 1 EACH SC SCH (10:46)
--- NOTE | 2018-07-14 04:49 | DIS ---
DATE OF ADMISSION: 07/11/2018 DATE OF DISCHARGE: 07/13/2018 HOSPITAL COURSE: The patient is a 47-year-old female, who underwent removal of hardware and revision of lumbar fusion at L4-L5. Following her surgery, she was transitioned to the Med/Surg floor, where her pain was well controlled with p.o. medications, she was tolerating regular diet, and voiding appropriately. She mobilized with the assistance of PT and has been ambulating easily throughout the department. She has no overnight complaints at this time. She is sitting up in the bed, in no acute distress. Free active range of motion of all extremities. No focal motor weakness. She has had some mild incisional drainage, but there is no active drainage appreciated on the dressing at this time. Steady gait. We will plan to dismiss the patient to home. I have discussed home care precautions and will plan to follow up with the patient in 2 weeks in the office. Job ID: [id number]
== END 2018-07-13 12:26 | disposition home or self-care (01) | DRG 460 ==
LOC: SURG A 08:06 → SURG B 15:27
PROVIDERS: ADMIT Neurological Surgery; ATTEND Neurological Surgery
PROC: 0SG30K1 Fusion of Lumbosacral Joint with Nonautologous Tissue Substitute, Posterior Approach, Posterior Column, Open Approach (ICD-10-PCS; principal; 2018-07-11)
PROC: 0SP004Z Removal of Internal Fixation Device from Lumbar Vertebral Joint, Open Approach (ICD-10-PCS; 2018-07-11)
PROC: 3E0U0GB Introduction of Recombinant Bone Morphogenetic Protein into Joints, Open Approach (ICD-10-PCS; 2018-07-11)
DX: M54.16 Radiculopathy, lumbar region (principal); T84.226A Displacement of internal fixation device of vertebrae, initial encounter; I10 Essential (primary) hypertension; E11.65 Type 2 diabetes mellitus with hyperglycemia; E78.5 Hyperlipidemia, unspecified; F41.8 Other specified anxiety disorders; G89.29 Other chronic pain; F17.210 Nicotine dependence, cigarettes, uncomplicated; E66.9 Obesity, unspecified; Z68.33 Body mass index [BMI] 33.0-33.9, adult; Z79.4 Long term (current) use of insulin; Y83.1 Surgical operation with implant of artificial internal device as the cause of abnormal reaction of the patient, or of later complication, without mention of misadventure at the time of the procedure
CPT/HCPCS: 36415; 36416; 76001; 80048; 85027; 93005; 93010; C1713; G8978-GP-CK; G8979-GP-CI; J0131; J1170; J1200; J1815; J2270; J3010; J3370; J3490

== ENCOUNTER 2018-08-04 15:31 | Outpatient (CLI) | payer OTHER ==
--- NOTE | 2018-08-04 17:11 | RAD ---
TWO VIEWS LUMBAR SPINE 08/04/18 HISTORY: Lumbar radiculopathy, followup from surgery. COMPARISON: 06/15/18. FINDINGS: Unilateral left sided pedicle screws are again seen with interconnecting damien. No hardware complicatio n seen. The markers for the intradiscal prosthesis are no longer visualized. No fracture or subluxati on is seen. Vertebral body heights are within normal limits. No other interval change. IMPRESSION: Interval removal of the intradiscal prosthesis at the L4-5 level. Postsurgical changes related to pos terior fusion of the L4-5 level are again present and stable. POS: [facility]
== END 2018-08-04 15:32 | disposition home or self-care (01) ==
LOC: TBSIIMAG 15:31
PROVIDERS: ATTEND Neurological Surgery
DX: M54.16 Radiculopathy, lumbar region (principal); Z98.1 Arthrodesis status
CPT/HCPCS: 72100

== ENCOUNTER 2018-09-15 13:35 | Outpatient (CLI) | payer OTHER ==
--- NOTE | 2018-09-15 16:18 | RAD ---
LUMBAR SPINE 2 VIEWS: HISTORY: M54.5 lumbar pain. COMPARISON: Radiograph 08/03/2018. FINDINGS: Left unilateral posteriori damien and screw fixation of L4-5 is unchanged. No evidence for hardware isabel lure. Mild narrowing of L4-5 disk space and L5-S1 disk space. No diskectomy spacer is appreciated. Paraspinal soft tissues are unremarkable. IMPRESSION: Unchanged postoperative appearance. POS: [facility]
== END 2018-09-15 13:36 | disposition home or self-care (01) ==
LOC: TBSIIMAG 13:35
PROVIDERS: ATTEND Neurological Surgery
DX: M54.5 Low back pain (principal); Z98.890 Other specified postprocedural states
CPT/HCPCS: 72100

== ENCOUNTER 2018-10-14 06:55 | Day surgery (SDC) | payer OTHER ==
[2018-10-13 13:10] VITALS: BMI 33.3
[2018-10-14 07:59] VITALS: BP 162/76; TEMP 97.4
--- NOTE | 2018-10-14 09:11 | RAD ---
MYELOGRAM LUMBAR: 10/14/2018 HISTORY: A 48-year-old female with lumbar radiculopathy. TECHNIQUE: Signed informed consent obtained. The patient was placed prone on the fluoroscopy table. L1-L2 leve l selected, after review of prior MRI. Overlying skin prepared and draped in the usual sterile fashi on. A 25 gauge needle was used to apply buffered Lidocaine superficially and deeply. A 22 gauge spi nal needle was advanced from a left paramedian approach. Upon return of clear CSF, a total of 10 mL of Isovue-M 200 was injected intrathecally. The spinal needle was removed. The patient tolerated th e procedure well. No complications. FLUOROSCOPY TIME: 1.5 minutes. DAP: 405.2 Gy*m^2. FINDINGS: There are five lumbar type vertebrae. Vertebral body heights are maintained. Alignment is normal. No scoliosis. There are unilateral left pedicle screws at L4 and L5. Moderate disk space narrowing at L4-L5. No high-grade disk space narrowing at any other level. Fluoroscopic spot image demonstrates the spinal needle tip overlying the left paramedial L1-L2 level, and contrast material distributed normally within the thecal sac of the lumbar spine. IMPRESSION: 1. Successful lumbar myelogram. 2. See separate report of subsequent CT lumbar myelogram. POS: [facility]
--- NOTE | 2018-10-14 11:14 | CT ---
CT LUMBAR SPINE WITH CONTRAST: (CT LUMBAR MYELOGRAM) 10/14/2018 HISTORY: A 48-year-old female with left lumbar radiculopathy. FINDINGS: There is fat stranding, consistent with edema, in the retroperitoneum, beginning approximately at the level of the origins of the bilateral renal arteries, then throughout infrarenal periaortic distribu tion, then following the bilateral common iliac and internal iliac vessels in the pelvis. Incidental ly, a normal appendix is visualized. No scoliosis or spondylolisthesis. Vertebral body heights are maintained. T11-T12: Essentially normal. T12-L1: Normal. The conus medullaris terminates at the L1 level. L1-L2: Normal. L2-L3: Normal. L3-L4: Normal. L4-L5: Mild disk space narrowing. Unilateral left pedicle screws at L4 and L5. The medial edge of the left L4 screw does traverse the far peripheral edge of the left side of the spinal canal minimall y, but the rest of the screws are within bone. No signs of hardware loosening. There is soft tissue density material encroaching upon the anterior aspect of the spinal canal, contiguous with the disk space, indenting the ventral aspect of the thecal sac. This is contiguous with soft tissue density m aterial in the left lateral recess, which effaces the left anterior side of the thecal sac, displacin g the left L5, S1, and S2 nerve roots, medially and slightly posteriorly within the thecal sac. With in the thecal sac, the L5 and sacral nerve roots appear to be clumped laterally to the left side and to the right side. There is soft tissue density material at the left posterior aspect of the spinal canal, presumably post surgical changes, such as scar tissue or granulation tissue, and right-sided m oderate ligamentum flavum thickening, which indent the posterior aspect of the thecal sac. Overall, the degree of thecal sac stenosis is moderate. There is no significant bilateral neural foraminal st enosis. There are multiple onlay bone chips posterior to the right facet complexes and at midline, p osterior to the spinous processes, from the upper L4 level to the lower L5 level, in the retrospinal soft tissues. No fusion of those bone chips. There is a left laminectomy and partial facetectomy def ect. L5-S1: Disk space maintained. No central stenosis or neural foraminal stenosis. No high-grade face t DJD. IMPRESSION: 1. Post surgical changes at L4-L5, including left hemilaminectomy, left facetectomy. and unilateral left pedicle screws. 2. Moderate stenosis of the thecal sac at L4-L5, due to a combination of post surgical scar tissue o r granulation tissue at the left side of the spinal canal, and post surgical scar tissue and/or disk herniation or disk bulge in the anterior epidural space. 3. Clumping of nerve roots in the thecal sac at the L4-L5 level, suggestive of chronic arachnoiditis . 4. No significant pathology at other levels in the lumbar spine. 5. Extensive fat stranding, consistent with edema, in the retroperitoneum, following the bilateral c ommon iliac and internal iliac vessels, into the pelvis. The source of this is not apparent on this CT. Recommend clinical correlation. CT of abdomen and pelvis with contrast may be useful. POS: [facility]
[2018-10-14] MEDS ORDERED: Iopamidol-M 200 41% 20 ML VIAL ONE (12:49)
== END 2018-10-14 10:45 | disposition home or self-care (01) ==
LOC: RAD 06:55
PROVIDERS: ATTEND Neurological Surgery
PROC: B01B1ZZ Fluoroscopy of Spinal Cord using Low Osmolar Contrast (ICD-10-PCS; principal; 2018-10-14)
DX: M54.16 Radiculopathy, lumbar region (principal); E11.9 Type 2 diabetes mellitus without complications; I10 Essential (primary) hypertension; I25.10 Atherosclerotic heart disease of native coronary artery without angina pectoris; M79.7 Fibromyalgia; F17.200 Nicotine dependence, unspecified, uncomplicated; Z79.4 Long term (current) use of insulin; Z79.899 Other long term (current) drug therapy; Z88.8 Allergy status to other drugs, medicaments and biological substances; Z98.1 Arthrodesis status; Z98.890 Other specified postprocedural states
CPT/HCPCS: 62304; 72132; Q9966

== ENCOUNTER 2018-11-01 13:14 | Outpatient (CLI) | payer OTHER ==
--- NOTE | 2018-11-01 14:01 | ULT ---
FBilateral lower extremity venous Doppler ultrasound: 11/01/2018 COMPARISON: None HISTORY: History of embolism, assess for DVT, history of laminectomy, left-sided leg pain TECHNIQUE: Multiplanar grayscale sonographic imaging of the venous structures of the bilateral lower extremities obtained with color flow and spectral analysis FINDINGS:Bilateral common femoral vein, greater saphenous vein, profunda femoral vein, femoral vein, popliteal vein, and posterior tibial vein appear patent. Normal blood flow, augmentation, and arabella conchis within the deep venous system. No evidence for DVT. IMPRESSION: No evidence for deep venous thrombosis of either lower extremity.
== END 2018-11-01 13:15 | disposition home or self-care (01) ==
LOC: SCSULT 13:14
PROVIDERS: ATTEND Neurological Surgery
DX: I82.403 Acute embolism and thrombosis of unspecified deep veins of lower extremity, bilateral (principal)
CPT/HCPCS: 93970

== ENCOUNTER 2018-11-27 17:49 | Emergency (ER) | payer OTHER ==
[2018-11-27 19:04] LABS: #Basophils 0.1 thou/uL (0.0-0.2); #Eosinphils 0.1 thou/uL (0.0-0.7); #Monocytes 0.4 thou/uL (0.11-0.59); #Neutrophils 3.6 thou/uL (1.40-6.50); %Basophils 0.8 % (0.0-1.0); %Lymphocytes 32.4 % (21.0-51.0); %Monocytes 6.7 % (0.0-10.0); Hemoglobin 11.3 g/dL (12.0-16.0); Mean Corpuscular HGB CONC 32.9 g/dL (32.0-36.0); Mean Corpuscular Hemoglobin 28.4 pg (27.0-31.0); Mean Corpuscular Volume 86.1 fL (78.0-98.0); Mean Platelet Volume 7.1 fL (7.4-10.4); Platelet Count 250 thou/uL (130-400); RBC Distribution Width 12.2 % (11.5-14.5); White Blood Cell (WBC) Count 6.2 thou/uL (4.8-10.8)
[2018-11-27 19:13] LABS: INR-International Normal Ratio 1.3; PTT 41.4 SEC (22.9-36.1); Prothrombin Time 15.8 SEC (12.0-14.7)
[2018-11-27] MEDS ORDERED: Fentanyl 100 MCG/2 ML VIAL ONE (19:33)
--- NOTE | 2018-11-27 21:17 | ULT ---
RIGHT ANKLE 3 VIEWS HISTORY: trauma, right ankle pain FINDINGS: The ankle mortise is maintained. No acute fracture or dislocation is identified. There is a plantar c alcaneal spur. No radiopaque foreign bodies are seen.
[2018-11-27] MEDS ORDERED: diphenhydrAMINE 50 MG/ML VIAL ONE (22:47)
[2018-11-27] MEDS ORDERED: Morphine 4 MG/ML VIAL ONE (22:47)
--- NOTE | 2018-11-28 11:10 | ULT ---
BILATERAL LOWER EXTREMITY VENOUS DUPLEX EXAM: Technique: Deep veins of both lower extremities were evaluated with color doppler and spectral analys is. Indications: Lower extremity pain and edema. History of DVT. Technologist states that a study from [facility] yesterday showed thrombus in the right greater saphenou s vein. FINDINGS: On today's exam, thrombus is again seen in the right greater saphenous vein proximally. The right common femoral vein, femoral, popliteal vein and posterior tibial vein all show normal flow and compression. All veins in the left lower extremity show normal flow and compression. IMPRESSION: 1. No evidence of DVT identified. 2. There is thrombus seen in the right greater saphenous vein. POS: [facility]
== END 2018-11-27 23:35 | disposition home or self-care (01) ==
LOC: ERS 17:49
DX: I82.811 Embolism and thrombosis of superficial veins of right lower extremity (principal); E78.5 Hyperlipidemia, unspecified; I10 Essential (primary) hypertension; E11.9 Type 2 diabetes mellitus without complications; F41.9 Anxiety disorder, unspecified; F32.9 Major depressive disorder, single episode, unspecified; F17.210 Nicotine dependence, cigarettes, uncomplicated; Z79.4 Long term (current) use of insulin; Z79.899 Other long term (current) drug therapy
CPT/HCPCS: 83880; 85025; 85610; 85730; 93005; 93970; 96374; 96375; J1200; J2270; J3010

== ENCOUNTER 2019-03-06 05:55 | Inpatient (IN) | payer OTHER ==
[2019-03-06] MEDS ORDERED: Albuterol Sulfate 2.5 mg/3 ml Neb ONE (06:11)
[2019-03-06] MEDS ORDERED: Cefepime 2 GM VIAL ONE (06:21)
[2019-03-06] MEDS ORDERED: Dexamethasone 10 MG/ML VIAL ONE (06:21)
[2019-03-06] MEDS ORDERED: fentaNYL Citrate/PF 2,000 MCG in Sodium Chloride 0.9% 60 ML IV SCH (06:22)
[2019-03-06] MEDS ORDERED: Ketamine 50 MG/ML (10ML VIAL) ONE (06:25)
[2019-03-06] MEDS ORDERED: Rocuronium Bromide 10 MG/ML (10ML VIAL) ONE (06:25)
[2019-03-06 06:32] LABS: Actual Bicarbonate (HCO3a) 25.9 mEq/L (22-28); Analyzer IN Cardio ER; Base Excess (BEa) -1.7 mEq/L (-2.0 to +3.0); CO2 Tension 56.4 mmHg (35.0-45.0); Calcium, Ionized 1.16 mmol/L (1.12-1.30); Carboxyhemoglobin (COHb) 1.4 gm% (0.0-3.0); Hemoglobin (Hb) 13.6 g/dL (12.0-16.0); O2 Tension (PaO2) 74.5 mmHg (80.0-100.0); Potassium - ABG Lab 3.33 mmol/L (3.70-5.30); Puncture Site RRA; pH, Arterial 7.28 (7.35-7.45)
[2019-03-06 06:40] LABS: Calcium, Ionized 1.08 mmol/L (See Comments:); Chloride 103 mmol/L (98-107); Glucose 194 mg/dL (70-105); Hemoglobin - Calc 13.1 g/dL (12.0-16.0); Lactate 2.65 mmol/L (0.50-2.20); Potassium 3.3 mmol/L (3.5-5.1); Sodium 139 mmol/L (138-145); T. Carbon Dioxide 30.7 mmol/L (22.0-28.0); vO2 Saturation-calc 98.5 % (60.0-85.0)
[2019-03-06 07:11] LABS: #Basophils 0.1 thou/uL (0.0-0.2); #Lymphocytes 1.1 thou/uL (1.20-3.40); #Monocytes 0.6 thou/uL (0.11-0.59); #Neutrophils 9.5 thou/uL (1.40-6.50); %Basophils 0.5 % (0.0-1.0); %Eosinophils 0.3 % (0.0-10.0); %Lymphocytes 9.9 % (21.0-51.0); %Neutrophils 84.2 % (42.0-75.0); Hemoglobin 12.8 g/dL (12.0-16.0); Mean Corpuscular HGB CONC 33.7 g/dL (32.0-36.0); Mean Corpuscular Hemoglobin 29.7 pg (27.0-31.0); Mean Corpuscular Volume 88.2 fL (78.0-98.0); Mean Platelet Volume 6.3 fL (7.4-10.4); Platelet Count 203 thou/uL (130-400); RBC Distribution Width 13.6 % (11.5-14.5); Red Blood Cell (RBC) Count 4.29 mill/uL (4.20-5.40); White Blood Cell (WBC) Count 11.2 thou/uL (4.8-10.8)
[2019-03-06] MEDS ORDERED: HYDROmorphone 0.5 MG/0.5 ML SYRINGE ONE (07:20)
[2019-03-06 07:22] LABS: INR-International Normal Ratio 0.9; Prothrombin Time 12.4 SEC (12.0-14.7)
[2019-03-06 07:31] LABS: ALT (SGPT) 22 U/L (8-55); AST (SGOT) 23 U/L (5-34); Albumin 3.6 g/dL (3.5-5.0); Alkaline Phosphatase 57 U/L (40-150); Anion Gap 13 mmol/L (10-20); BUN (Urea Nitrogen) 18 mg/dL (7.0-18.7); Bilirubin, Total 0.2 mg/dL (0.2-1.2); Calc. Creatinine Clearance 0 mL/min (70-130); Calcium 8.9 mg/dL (7.8-10.44); Carbon Dioxide 28 mmol/L (22-29); Chloride 100 mmol/L (98-107); Estimated GFR-MDRD 75; Glucose 102 mg/dL (70-105); Lipase 10 U/L (8-78); Magnesium 1.8 mg/dL (1.6-2.6); Protein, Total 6.6 g/dL (6.0-8.3); Sodium 138 mmol/L (136-145)
[2019-03-06 07:32] LABS: Acetaminophen Less than 6.0 mcg/mL (10.0-30.0); Alcohol Less than 10 mg/dL (Less than 10); Salicylate Less than 8.0 mg/dL (15.0-30.0)
[2019-03-06 07:35] LABS: Potassium 2.9 mmol/L (3.5-5.1)
--- NOTE | 2019-03-06 07:54 | CT ---
CT head noncontrast HISTORY: Altered mental status. COMPARISON: 02/06/2010. FINDINGS: There is no evidence of acute intracranial hemorrhage or infarct. Mild chronic ischemic sma ll vessel disease within the periventricular white matter. There is no mass effect or shift of midline structures. Visualized paranasal sinuses remain well-aerated. IMPRESSION: No acute intracranial abnormalities are demonstrated.
[2019-03-06 07:57] LABS: CKMB 3.5 ng/mL (0-6.6)
[2019-03-06 08:22] LABS: Amphetamine Not Detected (NotDetected); Barbiturates Screen Not Detected (NotDetected); Benzodiazepine Screen Detected (NotDetected); Cocaine Metabolite Screen Not Detected (NotDetected); Medtox Control Line Valid? VALID (VALID); Methadone Not Detected (NotDetected); Methamphetamine Not Detected (NotDetected); Opiate Screen Not Detected (NotDetected); Oxycodone Screen Not Detected (NotDetected); Phencyclidine (PCP) Not Detected (NotDetected); THC/Cannabinoid Screen Not Detected (NotDetected); Tricyclic Screen Not Detected (NotDetected)
[2019-03-06] MEDS ORDERED: Labetalol HCl 100 MG/20 ML VIAL ONE (08:29)
[2019-03-06 08:39] LABS: Medtox Reader # READER 4
[2019-03-06] MEDS ORDERED: niCARdipine 20MG In NaCl 20 MG/200 ML BAG ONE (08:50)
[2019-03-06] MEDS ORDERED: Labetalol HCl 200 MG, Admixture Fee 1 EACH in Sodium Chloride 0.9% 250 ML 160 ML IVPB SCH (09:00)
--- NOTE | 2019-03-06 09:15 | RAD ---
CHEST 1 VIEW: HISTORY: Status post intubation. COMPARISON: 09/24/2016. FINDINGS: Portable supine chest radiograph demonstrates an endotracheal tube with the distal tip that is diffic ult to appreciate but may be 1 cm above the raven. Nasogastric tube extends beyond the diaphragm an d terminates at the left upper quadrant. Heart size is within normal limits. Pulmonary vessels are within normal limits. Costophrenic angles are clear. Linear opacity in the left mid lung. No pneumothorax or osseous abnormalities. IMPRESSION: 1. Endotracheal tube as above. Better confirmation of the endotracheal tube is recommended with rep eat imaging. 2. Left mid lung opacity as above. 3. Results of the study discussed with Dr. Flores. POS: [facility]
--- NOTE | 2019-03-06 09:39 | CT ---
CT ANGIOGRAM OF CHEST: Date: 03/06/19 HISTORY: Unresponsive patient. COMPARISON: None. TECHNIQUE: CT angiogram of the chest is performed in the axial plane. Three-dimensional reformatted images are s ubmitted for interpretation. FINDINGS: There is increased soft tissue density involving the root of the thoracic aorta, ascending thoracic a nanci, and proximal aortic arch. The remainder of the thoracic aorta does not demonstrate abnormal sof t tissue attenuation along its periphery. Visualized solid organs are unremarkable. No mediastinal mass, lymphadenopathy, or hematoma. Adequate contrast opacification of the pulmonary arterial system to the left of the segmental arterie s. No filling defect to suggest thromboembolism. Trachea and central bronchi are patent. Small focus of opacification in the left lower lobe which may represent atelectasis, pneumonia, or as piration. No pneumothorax. IMPRESSION: 1. No evidence of pulmonary artery embolism to the level of the segmental arteries. 2. Asymmetric peripheral increased soft tissue density involving the proximal thoracic aorta. Findin gs may be a secondary sign of a thoracic dissection/intimal injury. Results of study discussed with Dr. Kevin Flores on 03/06/19 at 0816 hours. CODE CR. POS: [facility]
--- NOTE | 2019-03-06 09:55 | CT ---
ABDOMEN CT WITH CONTRAST PELVIS CT WITH CONTRAST: Date: 03/06/19 HISTORY: Unresponsive patient. COMPARISON: None. FINDINGS: ABDOMEN CT: Small left-sided pleural effusion with adjacent consolidation which may be due to atelectasis, pneumo franchesca, or aspiration. Normal heart size. There are coronary artery calcifications. Nasogastric tube terminates at the stomach. Nonspecific periportal edema. Portal vein is patent. Gallbladder appears to be surgically absent. Liver, spleen, pancreas, and adrenal glands have appropriate attenuation and enhancement. No gastrohepatic, retrocrural, or periportal lymphadenopathy. Symmetric enhancement of the kidneys. Bilaterally, no obstructive uropathy. Note, bilateral ureteral stents are present. The proximal pigtail of both stents is at the level of the ureteropelvic junction . The distal pigtail of both stents is within the urinary bladder. There is evidence of splenic varices. No mesenteric mass, lymphadenopathy, free air, or free fluid. Limited evaluation of the alimentary canal due to lack of oral contrast. No evidence of small bowel o bstruction. Ileocecal junction is normal. Normal caliber appendix. Fecal material in a nondistended, nondilated colon. Diverticulosis, without evidence of diverticulitis. CT PELVIS: Decompressed urinary bladder due to Dominguez catheter. No pelvic mass, lymphadenopathy, free air, or hugo e fluid. Hysterectomy changes are noted. OSSEOUS STRUCTURES: No lytic or blastic lesions in the osseous structures. Unilateral left-sided transpedicular screw at the L4-L5 level. IMPRESSION: 1. Opacification of left lung base which may be due to atelectasis, pneumonia, or aspiration. 2. Splenic varices. 3. Bilateral ureteral stents as described above. No evidence of significant associated obstructive u ropathy bilaterally. 4. Diverticulosis, without evidence of diverticulitis. 5. Normal caliber appendix. POS: [facility]
[2019-03-06] MEDS ORDERED: Potassium Chloride 30 MEQ in Sodium Chloride 0.9% 250 ML 250 ML IV SCH (10:00)
[2019-03-06 10:24] LABS: Lactic Acid 2.5 mmol/L (0.5-2.2)
[2019-03-06] MEDS ORDERED: Acetaminophen 650 MG Suppository PR PRN (10:39)
[2019-03-06] MEDS ORDERED: CCU Electrolyte Replacement 1 EACH IVPB SCH (10:39)
[2019-03-06] MEDS ORDERED: Dextrose 5% in Water 1,000 ML IV PRN (10:47)
[2019-03-06] MEDS ORDERED: Dextrose 50% Abboject 50 ML SYRINGE SLOW IVP PRN (10:47)
[2019-03-06] MEDS ORDERED: Sodium Chloride 0.9% 1,000 ML IV SCH (11:00)
[2019-03-06 11:27] VITALS: BMI 34.5
--- NOTE | 2019-03-06 11:37 | HP ---
PRIMARY CARE PROVIDER: Dr. Francisco Eden. CHIEF COMPLAINT: Unresponsiveness. HISTORY OF PRESENT ILLNESS: Ms. Rivera is a 48-year-old lady, who was seen at [facility] on March 06, 2019. The patient is currently lethargic, unable to provide any history. Collateral history was obtained from review of medical records, discussion with emergency room physician, and from the patient's mother and [id number] by the bedside. The patient was reportedly fine yesterday. Her mother spoke to her. Overnight, she was found to be unresponsive. Her heard her snoring in the night. EMS was called because the patient was unresponsive. When EMS arrived, the patient had dark vomit on face and mouth. The patient vomited on the way to the emergency room. In the emergency room, the patient was initially intubated. Her family arrived and informed the emergency room physician that she has DNAR. She was subsequently extubated. REVIEW OF SYSTEMS: Could not be completed secondary to the patient's nonverbal status. PAST MEDICAL HISTORY: 1. Complex regional pain syndrome. 2. Pancreatitis. 3. Dyslipidemia. 4. Hypertension. 5. Diabetes mellitus, on insulin therapy. 6. Fibromyalgia. 7. Hepatitis C. 8. Multiple carotid artery blockages. 9. Hunter esophagus. PAST SURGICAL HISTORY: 1. Cholecystectomy. 2. Hysterectomy. 3. Back surgery x3. 4. Cardiac catheterization. 5. section. 6. PCI with 2 stents a couple of weeks ago. 7. Bilateral ureteral stents. PSYCHIATRIC HISTORY: Anxiety and depression. SOCIAL HISTORY: No history of alcohol use. The patient stopped using heroin 4 years ago. She smokes 2-3 packets of cigarettes a day. FAMILY HISTORY: End-stage renal disease in her father. Her family members with heart disease and cancer. CODE STATUS: I discussed her code status with her mother and [id number]. The patient is DNAR. ALLERGIES: ATIVAN AND MORPHINE. CURRENT MEDICATIONS: These need to be clarified. In the past, the patient was on Zanaflex, atorvastatin, diazepam, diclofenac, Gibson, Lantus insulin, NovoLog insulin, lisinopril, metformin, Lopressor, Protonix, Lyrica, trazodone, and venlafaxine. PHYSICAL EXAMINATION: GENERAL: On examination, Ms. Rivera is lethargic. VITAL SIGNS: Blood pressure is 122/72, pulse 83, respiratory rate 22, and oxygen saturation 99% on BiPAP. Earlier, she had blood pressures as high as 238/129 and was tachycardic with pulse as high as 114. At the time of presentation, she also had respiratory rate of 28. EYES: No scleral icterus, no conjunctival pallor. ENT: Dry mucosal membranes. No oropharyngeal erythema or exudates. She has vomit outside her mouth. NECK: No cervical lymphadenopathy. The patient has endotracheal tube. RESPIRATORY: Accessory muscles of breathing are not active. Chest wall movements are symmetric bilaterally. She has coarse breath sounds bilaterally. CARDIOVASCULAR: S1 and S2 are heard, regular. Peripheral pulses palpable. ABDOMEN: Soft, nontender, bowel sounds heard. NEUROLOGIC: Full neurologic examination was not possible secondary to the patient's noncooperation. There is no facial droop. Deep tendon reflexes are 2+, plantars downgoing bilaterally. SKIN: Multiple tattoos. LYMPHATIC: No cervical lymphadenopathy. PSYCHIATRIC: Unable to assess mood, affect, or orientation to person, place, or time. LABORATORY DATA AND IMAGING STUDIES: Ms. Rivera's labs and investigations were reviewed. I reviewed her electrocardiogram which shows sinus tachycardia, no ST changes to suggest an acute coronary syndrome. I reviewed her chest x-ray, which shows left lung infiltrate. She had noncontrast CT scan of the brain, which did not show any acute intracranial abnormality. CT scan of the abdomen and pelvis with contrast showed opacification of left lung base, splenic varices, bilateral ureteral stents, diverticulosis, and normal-caliber appendix. CT angiogram of the chest showed no evidence of pulmonary artery embolism. She had asymmetric peripheral increased soft tissue density involving the proximal thoracic aorta, which may be a secondary sign of a thoracic dissection/intimal injury. She has leukocytosis with 11,200 white cells, of which 84% are neutrophils, normal hemoglobin, normal platelet count, INR 0.9, normal sodium, decreased potassium of 2.9, unremarkable liver profile, normal creatinine, elevated lactic acid level of 2.5, indeterminate troponin-I of 0.061, and urine toxicology screen positive for benzodiazepines. Arterial blood gas has shown pH of 7.28, pCO2 of 56.4, and pO2 of 74.5. ASSESSMENT AND PLAN: Ms. Rivera is a 48-year-old lady, who was seen at [facility] on March 06, 2019. Her problem list includes: 1. Sepsis: Ms. Rivera is presenting with sepsis, most likely secondary to left-sided pneumonia. She has been started on cefepime, which I will continue. 2. Acute respiratory failure with hypoxia and hypercapnia: The patient was initially intubated, subsequently changed to BiPAP after it was found that she is DNAR. We will admit the patient to critical care unit for management. 3. Aspiration pneumonia: We will continue the patient on cefepime. 4. Acute metabolic encephalopathy: Likely secondary to aspiration pneumonia. We will monitor her in the CCU. 5. Aortic dissection: Suspected, based on CT scan finding. The patient's family does not want any surgery. Emergency room physician also discussed with CV surgeon. The patient has been started on Cardene and drips. We will monitor her in the CCU. 6. Diabetes mellitus type 2: Start the patient on Accu-Cheks and insulin sliding scale. 7. Coronary artery disease: The patient reportedly has significant coronary artery disease according to family. We will continue to monitor her on telemetry. Many thanks for allowing me to participate in your patient's care. Please feel free to contact me with any questions or concerns. LEVEL OF RISK: High. LEVEL OF COMPLEXITY: High. Job ID: [id number]
[2019-03-06] MEDS ORDERED: CCU ELECTROLYTE REPLACEMENT PROTOCOL FS PRN (11:39)
[2019-03-06] MEDS ORDERED: Potassium Chloride 20 MEQ TAB PO PRN (11:39)
[2019-03-06] MEDS ORDERED: Magnesium Oxide 400 MG TAB PO PRN (11:39)
[2019-03-06] MEDS ORDERED: Potassium Chloride 40 MEQ in Sodium Chloride 0.9% 250 ML 250 ML IVPB PRN (11:39)
[2019-03-06] MEDS ORDERED: PHOS-NAK 1 PKT PACK PO PRN ×2 (11:39)
[2019-03-06] MEDS ORDERED: Magnesium 2 GM/50 ML 2 GM in Premix Bag 1 BAG IVPB PRN (11:39)
[2019-03-06] MEDS ORDERED: Potassium Phosphate 9 MMOL in Sodium Chloride 0.9% 100 ML IVPB PRN (11:39)
[2019-03-06] MEDS ORDERED: Potassium Phosphate 12 MMOL in Sodium Chloride 0.9% 250 ML 250 ML IV PRN (11:39)
[2019-03-06] MEDS ORDERED: Potassium Chloride 40 MEQ in Premix Bag 1 BAG IVPB PRN (11:39)
[2019-03-06] MEDS ORDERED: Potassium Phosphate 15 MMOL in Sodium Chloride 0.9% 250 ML 250 ML IV PRN (11:39)
[2019-03-06] MEDS: Nicotine 21 MG PATCH TD SCH (11:50)
[2019-03-06 13:37] LABS: Troponin I 0.057 ng/mL (< 0.028)
--- NOTE | 2019-03-06 13:39 | CON ---
DATE OF CONSULTATION: 03/06/2019 CONSULTING PHYSICIAN: Hospitalist Group. REASON FOR CONSULTATION: Acute respiratory failure. HISTORY OF PRESENT ILLNESS: This is a 48-year-old female, who apparently was found down unresponsive with some dark material coming from her mouth. She was intubated in the field for altered mental status. She was later extubated, and was found that she has a standing DNR/DNI order. She is currently on BiPAP. PAST MEDICAL HISTORY: Remarkable for drug abuse, hyperlipidemia, hypertension, diabetes mellitus, hepatitis C, fibromyalgia, Hunter esophagus. PAST SURGICAL HISTORY: Cholecystectomy, hysterectomy, back surgery, cardiac catheterization, . PSYCHIATRIC HISTORY: Remarkable for anxiety and depression. SOCIAL HISTORY: Apparently, used to abuse opiates, methamphetamines. She smokes at least a pack a day. Alcohol use not known. ALLERGIES: ATIVAN AND MORPHINE. MEDICATIONS: Prior to admission, not updated at the time of this dictation. REVIEW OF SYSTEMS: Cannot be obtained secondary to the patient's altered mental status. PHYSICAL EXAMINATION: VITAL SIGNS: Temperature 96.8, pulse 104, blood pressure 150/88, O2 saturation 97%. GENERAL: The patient does move around. HEENT: Remarkable for some dark material coming from her nares. LUNGS: Clear. CARDIAC: S1 and S2. Regular. ABDOMEN: Soft, nontender. EXTREMITIES: No edema. LABORATORY DATA: White blood cell count 11.2, hematocrit 37.8, and platelet count 203. PH was 7.28, pCO2 of 56, pO2 of 74, while she was on ventilator prior to being extubated. Sodium 138, potassium 2.9, chloride 100, CO2 of 28, BUN 18, creatinine 0.8, glucose 102. Lactate was 2.5. Tox screen is positive for benzodiazepines. Everything else was negative. ASSESSMENT: The patient presents with episode of altered mental status, etiology not clear. It looks like she could possibly have an upper gastrointestinal bleed. She also has an area of pneumonitis versus scar in the left lower lobe on CT scan. RECOMMENDATION: 1. Empiric antibiotics. 2. Agree with IV Pepcid. 3. Monitor labs. 4. BiPAP until she wakes up, then stop. 5. We will follow with you. 6. Dr. Cowan has seen her back in 2009. I will notify him of her admission. Job ID: [id number]
[2019-03-06] MEDS ORDERED: ISOVUE-370 76%-LOCM 1 ML ONE (14:33)
[2019-03-06 16:06] LABS: Troponin I 0.075 ng/mL (< 0.028)
[2019-03-06] MEDS ORDERED: Dextrose 5 % And 0.9 % NaCl 1,000 ML IV SCH (17:00)
[2019-03-06] MEDS: Cefepime 2 GM in Sodium Chloride 0.9% 100 ML IVPB SCH (20:50)
[2019-03-06] MEDS: Famotidine/PF 20 mg/2ml Vial SLOW IVP SCH (20:51)
[2019-03-06 22:50] LABS: Potassium 3.8 mmol/L (3.5-5.1)
[2019-03-06] MEDS ORDERED: Morphine 2 MG/ML SYRINGE IVP SCH (23:00)
[2019-03-06] MEDS: Dextrose 10% in Water 1,000 ML IV SCH (23:19)
[2019-03-07] MEDS ORDERED: Sterile Water 10 ML VIAL FS PRN (00:57)
[2019-03-07] MEDS ORDERED: Ziprasidone 20 MG VIAL IM SCH ×2 (01:00→14:15)
[2019-03-07] MEDS ORDERED: Ziprasidone 20 MG VIAL ONE ×2 (04:24→13:44)
[2019-03-07 05:11] LABS: #Basophils 0.1 thou/uL (0.0-0.2); #Eosinphils 0.1 thou/uL (0.0-0.7); #Lymphocytes 2.5 thou/uL (1.20-3.40); #Monocytes 0.5 thou/uL (0.11-0.59); #Neutrophils 7.4 thou/uL (1.40-6.50); %Basophils 0.5 % (0.0-1.0); %Eosinophils 0.7 % (0.0-10.0); %Lymphocytes 23.9 % (21.0-51.0); %Monocytes 4.9 % (0.0-10.0); Hemoglobin 11.9 g/dL (12.0-16.0); Mean Corpuscular HGB CONC 33.3 g/dL (32.0-36.0); Mean Corpuscular Hemoglobin 29.7 pg (27.0-31.0); Mean Corpuscular Volume 89.2 fL (78.0-98.0); Mean Platelet Volume 6.6 fL (7.4-10.4); Platelet Count 212 thou/uL (130-400); White Blood Cell (WBC) Count 10.6 thou/uL (4.8-10.8)
[2019-03-07 05:43] LABS: Anion Gap 13 mmol/L (10-20); BUN (Urea Nitrogen) 14 mg/dL (7.0-18.7); Calc. Creatinine Clearance 142 mL/min (70-130); Calcium 9.2 mg/dL (7.8-10.44); Carbon Dioxide 28 mmol/L (22-29); Chloride 102 mmol/L (98-107); Estimated GFR-MDRD 78; Glucose 95 mg/dL (70-105); Potassium 3.5 mmol/L (3.5-5.1); Sodium 139 mmol/L (136-145)
[2019-03-07] MEDS: Famotidine/PF 20 mg/2ml Vial SLOW IVP SCH ×2 (09:23→21:28)
--- NOTE | 2019-03-07 09:23 | PRG ---
DATE OF SERVICE: 03/07/2019 SUBJECTIVE: The patient in the ICU. i saw 9 years ago. She is not one of our office patients. She came with altered mental status, some vomitus. She is intubated and then extubated and had been on BiPAP. This morning, she is on BiPAP. OBJECTIVE: VITAL SIGNS: Pulse is 96, blood pressure is 180/80, saturations are 96%, and respirations 17. GENERAL: Opens eyes, moves all 4 extremities. CHEST: Anterior rhonchi. CARDIAC: Normal S1 and S2. No gallops. ABDOMEN: Soft. NEUROLOGIC: Still encephalopathic. DIAGNOSTIC DATA: CT chest shows a small right-sided infiltrate, appears to be older. This is no evidence of pulmonary emboli. There was a concern about some thoracic dissection abnormality seen on the CT. Otherwise, CTA chest unremarkable. CT abdomen and pelvis performed, which showed some atelectasis in the bases, ureteral stents. Her lab shows white count 10,000, H and H of 11 and 35, and platelet count is 212. Glucose 136. Toxicology screen was present only for benzos. IMPRESSION: 1. Metabolic encephalopathy. 2. Hypoglycemia, on admission. 3. History of chronic pain. 4. Hypertension. 5. Diabetes. PLAN: At this stage, I will minimize medication. Decrease sedation. Continue supportive care. Agree with empiric antibiotics, neb treatment. We will follow while in the ICU. We will get additional information as family arrives. One-half hour of critical care time. Job ID: [id number] MTDD
[2019-03-07] MEDS: hydrALAZINE 20 MG/ML VIAL SLOW IVP PRN ×2 (09:24→14:19)
[2019-03-07] MEDS: Cefepime 2 GM in Sodium Chloride 0.9% 100 ML IVPB SCH ×2 (09:24→21:28)
[2019-03-07 09:40] LABS: ALT (SGPT) 22 U/L (8-55); AST (SGOT) 14 U/L (5-34); Albumin 3.1 g/dL (3.5-5.0); Alkaline Phosphatase 50 U/L (40-150); Bilirubin, Direct 0.1 mg/dL (0.1-0.3); Bilirubin, Total 0.3 mg/dL (0.2-1.2); Magnesium 1.5 mg/dL (1.6-2.6); Protein, Total 5.6 g/dL (6.0-8.3)
--- NOTE | 2019-03-07 10:54 | PDOC.PALCO ---
Palliative Care Consult - Consult Details Requesting Physician: Dr Perla Reason for Consult: goals of care, other Family Members Present: Morena daughterangylaisadora and Patient - Pertinent HPI Patient is a 48 year old female who has chronic health conditions and was seen at [facility] either 03/04 or 03/05 and ended up leaving prior to being admitted and returned home, unsure of specifics of presentation to emergency room at &. 8?5 patient was found at home unresponsive with vomit in her mouth and on bed. Transported to [facility] emergency room for further evaluation. Intubated in ER admitted, then extubated when family notified personal that she was a DNAR. Admitted to [facility] for further evaluation. - Pertinent PMH Pancreatitis, hypertension, Diabetes Mellitus on insulin, Hep C, Hunter esophagus, Fibromyalgia. Back sufrgery x3. Cardiac Cath recently. - Social History Smoking Status: Current every day smoker Smoking: greater than 1 pack/day Drug Use History: other (Prior IV drug user, recovery 4 years) Living Situation: - Medications MAR Reviewed: Yes - Allergies Allergies/Adverse Reactions: Allergies Allergy/AdvReac Type Severity Reaction Status Date / Time lorazepam [From Ativan] Allergy Intermediate Verified 10/14/18 07:41 - Subjective Patietn was awake todya, slightly verbal although lethargic. Rocking motion that is pronounced, family states this is usual behavior. However, she is less verbal with slurred speech that is not her baseline. No specific complaints. Family at bedside hopeful that in the next 24 hours Ms Rivera returns to her baseline. - Objective Vital Signs: Vital Signs - Most Recent Temp Pulse Resp BP Pulse Ox 98.5 F 108 H 19 172/75 H 99 03/07/19 08:00 03/07/19 09:24 03/07/19 06:52 03/07/19 09:24 03/07/19 06:54 Palliative Performance Scale: 30 - Advance Directives Medical Power of Certified Family Mediator: Patient mother Specific Directives: DNAR - Physical Exam Constitutional: confusion HEENT: moist MMs, EOMI Respiratory: unlabored breathing Cardiovascular: RRR Gastrointestinal: soft, non-tender Deviation from normal: spastic movements Deviation from normal: confused, limited speech Deviation from normal: pallor - Problem List (1) Palliative care encounter Code(s): Z51.5 - ENCOUNTER FOR PALLIATIVE CARE Current Visit: Yes Status: Acute (2) Anxiety and depression Code(s): F41.9 - ANXIETY DISORDER, UNSPECIFIED; F32.9 - MAJOR DEPRESSIVE DISORDER, SINGLE EPISODE, UNSPECIFIED Current Visit: No Status: Chronic - Plan/Recommendations Plan: Lengthy conversation with family in relation to recent history and patient wishes. Family confirmed that they are understanding of chronic disease and patient is a DNAR and they want no extensive measures to treat patient. Discussed possible outcomes and that in the future Hospice may be a consideration to manage symptoms at home and avoid hospitalizations. Monica Johnson RNrefuse driver will continue to follow assisting with goals of care as patient approaches discharge. [80] minutes spent on this encounter with >50% of the time in counseling and coordination of care. Thank you for this very appropriate consult.
--- NOTE | 2019-03-07 11:12 | PDOC.HOSPP ---
- Subjective Subjective: Pt seen for followup re: acute metabolic encephalopathy. Waking to touch, but not answering questions, could not complete ROS. - Objective Vital Signs & Weight: Vital Signs (12 hours) Temp Pulse Resp BP Pulse Ox 03/07/19 09:24 108 H 172/75 H 03/07/19 08:00 98.5 F 03/07/19 06:54 99 03/07/19 06:52 108 H 19 99 03/07/19 04:06 96 03/07/19 04:00 98.8 F Weight Weight 229 lb 4.492 oz Most Recent Monitor Data Heart Rate from ECG 86 NIBP 152/67 NIBP BP-Mean 95 Respiration from ECG 21 SpO2 99 I&O: 03/06/19 03/07/19 03/08/19 06:59 06:59 06:59 Intake Total 1667 Output Total 5900 310 Balance -843 -310 Result Diagrams: 03/07/19 04:22 03/07/19 04:22 Additional Labs: Accuchecks 03/07/19 03/07/19 03/07/19 09:04 07:55 04:23 POC Glucose 153 H 136 H 104 03/07/19 03/07/19 03/06/19 02:06 00:23 22:28 POC Glucose 95 83 92 03/06/19 03/06/19 03/06/19 21:01 16:27 15:21 POC Glucose 63 L 89 111 H 03/06/19 03/06/19 03/06/19 14:17 12:57 12:35 POC Glucose 130 H 68 L 73 Labs and MARs reviewed by me ROS - Review of Systems All systems: All other ROS were reviewed and found negative. - Medication Medications: Active Medications Generic Name Dose Route Start Last Admin Trade Name Freq PRN Reason Stop Dose Admin Albuterol/Ipratropium 3 ml 03/06/19 14:30 03/07/19 06:52 Duoneb NEB 3 ml [id number] HAIDER Administration Dextrose/Water 25 gm 03/06/19 10:47 03/06/19 13:02 Dextrose 50% SLOW IVP 25 gm PRN PRN Administration Hypoglycemia Famotidine 20 mg 03/06/19 21:00 03/07/19 09:23 Pepcid SLOW IVP 20 mg Q12HR HAIDER Administration Hydralazine HCl 10 mg 03/07/19 08:34 03/07/19 09:24 Apresoline SLOW IVP 10 mg Q6H PRN Administration SBP Greater Than 170 Cefepime HCl 2 gm/ Sodium 100 mls @ 200 mls/hr 03/06/19 21:00 03/07/19 09:24 Chloride IVPB 100 mls Q12HR HAIDER Administration Dextrose/Water 1,000 mls @ 75 mls/hr 03/06/19 23:15 03/06/19 23:19 Dextrose 10% In Water IV 1,000 mls .[id number] HAIDER Administration Nicotine 21 mg 03/06/19 12:00 03/06/19 11:50 Nicoderm Patch TD 21 mg Q24HR HAIDER Administration Sodium Chloride 10 ml 03/06/19 21:00 03/07/19 09:24 Flush - Normal Saline IVF 10 ml Q12HR HAIDER Administration - Exam Eye: PERRL, anicteric sclera ENT: normocephalic atraumatic Neck: supple Heart: RRR Respiratory: CTAB Gastrointestinal: soft Musculoskeletal: normal tone Psychiatric: normal affect Hosp A/P (1) Acute metabolic encephalopathy Code(s): G93.41 - METABOLIC ENCEPHALOPATHY Status: Acute (2) Sepsis Code(s): A41.9 - SEPSIS, UNSPECIFIED ORGANISM Status: Acute (3) Hypoglycemia Code(s): E16.2 - HYPOGLYCEMIA, UNSPECIFIED Status: Acute (4) Dyslipidemia Code(s): E78.5 - HYPERLIPIDEMIA, UNSPECIFIED Status: Chronic (5) GERD (gastroesophageal reflux disease) Code(s): K21.9 - GASTRO-ESOPHAGEAL REFLUX DISEASE WITHOUT ESOPHAGITIS Status: Chronic (6) Hypertension Code(s): I10 - ESSENTIAL (PRIMARY) HYPERTENSION Status: Chronic (7) Obesity (BMI 30.0-34.9) Code(s): E66.9 - OBESITY, UNSPECIFIED Status: Chronic - Plan continue antibiotics continue IV cefepime. Pt had episodes of hypoglycemia, now infusing D10.
[2019-03-07] MEDS: Nicotine 21 MG PATCH TD SCH (13:19)
[2019-03-07] MEDS ORDERED: Morphine 4 MG/ML VIAL ONE (13:44)
[2019-03-07] MEDS: Promethazine HCl 25 MG/ML VIAL IM/IV PRN ×2 (13:55→23:46)
[2019-03-07] MEDS ORDERED: Sterile Water 10 ML VIAL FS SCH (14:15)
[2019-03-07] MEDS: Dextrose 10% in Water 1,000 ML IV SCH (21:27)
[2019-03-07] MEDS: Morphine 4 MG/ML VIAL SLOW IVP PRN (23:45)
[2019-03-08] MEDS: Dextrose 10% in Water 1,000 ML IV SCH (03:19)
[2019-03-08] MEDS: Morphine 4 MG/ML VIAL SLOW IVP PRN ×2 (06:38→12:03)
[2019-03-08 07:06] LABS: #Basophils 0.1 thou/uL (0.0-0.2); #Eosinphils 0.1 thou/uL (0.0-0.7); #Lymphocytes 1.5 thou/uL (1.20-3.40); #Monocytes 0.5 thou/uL (0.11-0.59); #Neutrophils 6.3 thou/uL (1.40-6.50); %Eosinophils 0.8 % (0.0-10.0); %Lymphocytes 17.4 % (21.0-51.0); %Monocytes 6.5 % (0.0-10.0); %Neutrophils 74.4 % (42.0-75.0); Hemoglobin 12.1 g/dL (12.0-16.0); Mean Corpuscular HGB CONC 33.7 g/dL (32.0-36.0); Mean Corpuscular Hemoglobin 29.3 pg (27.0-31.0); Mean Platelet Volume 6.7 fL (7.4-10.4); Platelet Count 200 thou/uL (130-400); RBC Distribution Width 13.6 % (11.5-14.5); Red Blood Cell (RBC) Count 4.13 mill/uL (4.20-5.40); White Blood Cell (WBC) Count 8.4 thou/uL (4.8-10.8)
[2019-03-08 07:27] LABS: Anion Gap 13 mmol/L (10-20); BUN (Urea Nitrogen) 14 mg/dL (7.0-18.7); Calc. Creatinine Clearance 129 mL/min (70-130); Carbon Dioxide 25 mmol/L (22-29); Chloride 101 mmol/L (98-107); Estimated GFR-MDRD 72; Glucose 236 mg/dL (70-105); Potassium 3.6 mmol/L (3.5-5.1); Sodium 135 mmol/L (136-145)
[2019-03-08] MEDS ORDERED: Dextrose 5% in Water 500 ML IV SCH (09:00)
--- NOTE | 2019-03-08 09:12 | PRG ---
DATE OF SERVICE: 03/08/2019 SUBJECTIVE: This morning, the patient is little more responsive, required morphine all night for pain. OBJECTIVE: VITAL SIGNS: Saturations are 98%, respiratory rate 20, blood pressure 130/73, respirations 18. GENERAL: Awake, alert, and responsive. Recognizes the mother and the son. CHEST: Decreased breath sounds. No wheezing. CARDIAC: Normal S1 and S2. No gallops. ABDOMEN: No masses. IMPRESSION: Metabolic encephalopathy, chronic pain syndrome, do not resuscitate, tobacco abuse, diabetes, hypoglycemia since resolved. PLAN: Continue PT, supportive care. Discontinue antibiotics. No need to suspect any sepsis. She is a mildly hypothyroid. I will repeat TSH before starting any kind of thyroid medication. We will follow while in the ICU. Job ID: [id number]
[2019-03-08] MEDS ORDERED: Dextrose 5% in Water 1,000 ML IV SCH (09:15)
[2019-03-08] MEDS: Famotidine/PF 20 mg/2ml Vial SLOW IVP SCH ×2 (09:22→22:04)
[2019-03-08] MEDS: HumaLOG 300 UNITS/3 ML VIAL SC PRN ×3 (09:23→21:06)
[2019-03-08] MEDS ORDERED: Lisinopril 20 MG TAB PO SCH (11:15)
[2019-03-08] MEDS ORDERED: Metoprolol Tartrate 100 MG TAB PO SCH (11:15)
[2019-03-08] MEDS: Magnesium Oxide 400 MG TAB PO PRN ×2 (11:21→21:02)
[2019-03-08] MEDS: Nicotine 21 MG PATCH TD SCH (11:45)
[2019-03-08] MEDS ORDERED: Acetaminophen 325 MG TAB PO PRN (16:01)
--- NOTE | 2019-03-08 19:14 | PDOC.HOSPP ---
- Subjective Encounter Date: 03/08/19 Encounter Time: 09:20 Subjective: Pt seen for followup re; acute metabolic encephalopathy. More alert today, answering some questions but not consistently, could not complete ROS. - Objective Vital Signs & Weight: Vital Signs (12 hours) Temp Pulse Resp BP Pulse Ox 03/08/19 18:16 88 16 03/08/19 16:00 98.3 F 03/08/19 14:36 79 19 03/08/19 12:00 98.5 F 03/08/19 11:21 184/87 H 03/08/19 10:45 109 H 19 03/08/19 08:00 97.7 F 96 20 100 Weight Weight 222 lb 14.197 oz Most Recent Monitor Data Heart Rate from ECG 91 NIBP 162/85 NIBP BP-Mean 110 Respiration from ECG 22 SpO2 100 I&O: 03/07/19 03/08/19 03/09/19 06:59 06:59 06:59 Intake Total 1667 841 690 Output Total 2510 810 700 Balance -843 31 -10 Result Diagrams: 03/08/19 06:45 03/08/19 06:45 Additional Labs: Accuchecks 03/08/19 03/08/19 03/08/19 16:01 11:51 08:53 POC Glucose 188 H 217 H 239 H 03/08/19 06:50 POC Glucose 246 H EKG Reviewed by me: Yes (Tele: NSR) ROS - Medication Medications: Active Medications Generic Name Dose Route Start Last Admin Trade Name Freq PRN Reason Stop Dose Admin Acetaminophen 650 mg 03/08/19 16:01 03/08/19 16:08 Tylenol PO 650 mg Q4H PRN Administration Headache/Fever or Pain Albuterol/Ipratropium 3 ml 03/06/19 14:30 03/08/19 18:16 Duoneb NEB 3 ml [id number] HAIDER Administration Dextrose/Water 25 gm 03/06/19 10:47 03/06/19 13:02 Dextrose 50% SLOW IVP 25 gm PRN PRN Administration Hypoglycemia Famotidine 20 mg 03/06/19 21:00 03/08/19 09:22 Pepcid SLOW IVP 20 mg Q12HR HAIDER Administration Hydralazine HCl 10 mg 03/07/19 08:34 03/07/19 14:19 Apresoline SLOW IVP 10 mg Q6H PRN Administration SBP Greater Than 170 Dextrose/Water 1,000 mls @ 50 mls/hr 03/08/19 09:15 03/08/19 11:02 D5w IV Not Given .Q20H HAIDER Insulin Human Lispro 0 units 03/06/19 10:47 03/08/19 11:51 Humalog SC 3 unit .MILD SLIDING SCALE PRN Administration Mild Correctional Scale Magnesium Oxide 400 mg 03/06/19 11:39 03/08/19 11:21 Magnesium Oxide PO 400 mg BIDPRN PRN Administration FOR SERUM MAG 1.4 - 2.0 Morphine Sulfate 4 mg 03/07/19 14:09 03/08/19 12:03 Morphine SLOW IVP 4 mg Q6H PRN Administration Moderate to Severe Pain (6-10) Nicotine 21 mg 03/06/19 12:00 03/08/19 11:45 Nicoderm Patch TD 21 mg Q24HR HAIDER Administration Promethazine HCl 12.5 mg 03/07/19 08:16 03/07/19 23:46 Phenergan IM/IV 12.5 mg Q6H PRN Administration Nausea/Vomiting Sodium Chloride 10 ml 03/06/19 21:00 03/08/19 11:20 Flush - Normal Saline IVF 10 ml Q12HR HAIDER Administration - Exam awake alert General - other findings: Obese Eye: PERRL ENT: normocephalic atraumatic Neck: supple, symmetric Heart: RRR Respiratory: CTAB Gastrointestinal: soft Skin: normal turgor Neurological - other findings: Occasional jerky movements, reportedly chronic per mother Psychiatric: normal affect Hosp A/P (1) Acute metabolic encephalopathy Code(s): G93.41 - METABOLIC ENCEPHALOPATHY Status: Acute (2) Dyslipidemia Code(s): E78.5 - HYPERLIPIDEMIA, UNSPECIFIED Status: Chronic (3) GERD (gastroesophageal reflux disease) Code(s): K21.9 - GASTRO-ESOPHAGEAL REFLUX DISEASE WITHOUT ESOPHAGITIS Status: Chronic (4) Hypertension Code(s): I10 - ESSENTIAL (PRIMARY) HYPERTENSION Status: Chronic (5) Obesity (BMI 30.0-34.9) Code(s): E66.9 - OBESITY, UNSPECIFIED Status: Chronic (6) Sepsis Code(s): A41.9 - SEPSIS, UNSPECIFIED ORGANISM Status: Ruled-out (7) Hypoglycemia Code(s): E16.2 - HYPOGLYCEMIA, UNSPECIFIED Status: Resolved - Plan plan discussed w/ family, PT/OT, out of bed/ambulate Discussed with mother, and daughter by bedside, updated them. Transfer to floor. Resume home antihypertensives. Encephalopathy improving. Resume metformin. Continue Lipitor for dyslipidemia. Continue Plavix. Needs discharge planning. Family leaning towards LTC.
[2019-03-08] MEDS: Morphine 10 MG/0.5 ML ORAL SYRINGE SL PRN (19:26)
[2019-03-08] MEDS: Promethazine HCl 25 MG/ML VIAL IM/IV PRN (19:42)
[2019-03-08] MEDS: Atorvastatin Calcium 40 MG TAB PO SCH (21:02)
[2019-03-08] MEDS: Metoprolol Tartrate 100 MG TAB PO SCH ×2 (21:02→21:28)
[2019-03-08] MEDS ORDERED: HYDROcodone/Acetaminophen 5/325 mg Tablet PO PRN ×2 (21:53)
[2019-03-09] MEDS: Morphine 10 MG/0.5 ML ORAL SYRINGE SL PRN ×3 (00:20→22:40)
[2019-03-09 04:28] LABS: #Eosinphils 0.1 thou/uL (0.0-0.7); #Lymphocytes 1.2 thou/uL (1.20-3.40); #Monocytes 0.5 thou/uL (0.11-0.59); #Neutrophils 5.9 thou/uL (1.40-6.50); %Basophils 0.6 % (0.0-1.0); %Eosinophils 1.1 % (0.0-10.0); %Lymphocytes 15.7 % (21.0-51.0); %Monocytes 6.5 % (0.0-10.0); %Neutrophils 76.2 % (42.0-75.0); Hemoglobin 13.1 g/dL (12.0-16.0); Mean Corpuscular HGB CONC 34.7 g/dL (32.0-36.0); Mean Corpuscular Hemoglobin 30.2 pg (27.0-31.0); Mean Corpuscular Volume 87.1 fL (78.0-98.0); Mean Platelet Volume 6.6 fL (7.4-10.4); Platelet Count 206 thou/uL (130-400); RBC Distribution Width 13.3 % (11.5-14.5); Red Blood Cell (RBC) Count 4.32 mill/uL (4.20-5.40); White Blood Cell (WBC) Count 7.7 thou/uL (4.8-10.8)
[2019-03-09 04:48] LABS: Anion Gap 15 mmol/L (10-20); BUN (Urea Nitrogen) 16 mg/dL (7.0-18.7); Calc. Creatinine Clearance 129 mL/min (70-130); Calcium 9.2 mg/dL (7.8-10.44); Carbon Dioxide 24 mmol/L (22-29); Chloride 100 mmol/L (98-107); Estimated GFR-MDRD 72; Glucose 203 mg/dL (70-105); Potassium 3.6 mmol/L (3.5-5.1); Sodium 135 mmol/L (136-145)
[2019-03-09] MEDS ORDERED: predniSONE 20 MG TAB PO SCH ×2 (08:00→09:19)
[2019-03-09] MEDS ORDERED: hydrALAZINE 20 MG/ML VIAL SLOW IVP PRN (08:54)
[2019-03-09] MEDS: Metoprolol Tartrate 100 MG TAB PO SCH ×2 (09:27→22:05)
[2019-03-09] MEDS: Lisinopril 20 MG TAB PO SCH (09:27)
[2019-03-09] MEDS: metFORMIN 500 MG TAB PO SCH ×3 (09:27→16:56)
[2019-03-09] MEDS: Clopidogrel Bisulfate 75 MG TAB PO SCH (09:28)
[2019-03-09] MEDS: Famotidine 20 MG TAB PO SCH ×2 (09:28→20:41)
[2019-03-09] MEDS ORDERED: predniSONE 5 MG TAB PO SCH (09:30)
[2019-03-09 09:52] LABS: Free T4 (Free Thyroxine) 1.2 ng/dL (0.70-1.48)
[2019-03-09] MEDS: cloNIDine 0.1 MG TAB PO PRN ×2 (11:37→16:56)
[2019-03-09] MEDS: Nicotine 21 MG PATCH TD SCH (11:42)
[2019-03-09] MEDS: HumaLOG 300 UNITS/3 ML VIAL SC PRN ×2 (11:51→16:56)
[2019-03-09] MEDS ORDERED: Diazepam 5 MG TAB PO SCH (12:00)
--- NOTE | 2019-03-09 13:18 | MRI ---
EXAM: MRI Brain WO Con PROVIDED CLINICAL HISTORY: Patient admitted on 03/06/2019 secondary to altered mental status and hypoxia. This is for evaluation o f possible anoxic brain injury. COMPARISON: CT head on 03/06/2019. FINDINGS: A few scattered punctate foci of increased FLAIR and T2-weighted signal intensity are seen in the per iventricular and subcortical white matter which are nonspecific but likely reflective of mild chronic small vessel ischemic changes. There is a punctate focus of increased T2-weighted signal inte nsity in the inferior aspect left cerebellar hemisphere probably due to tiny remote cavitated infarction. There is no restricted diffusion seen to suggest an acute infarction. No additional signa l abnormalities are seen within the brain. There is mild cerebral volume loss not unexpected for the patient's age. The ventricular system is no rmal in size, shape, and position. Appropriate flow voids are demonstrated at the base of the brain. The right vertebral artery is very small in caliber and may terminate in PICA. The paranasal sinuses, orbits, and skull base demonstrate a normal MRI appearance. IMPRESSION: 1. No acute intracranial abnormality is demonstrated. 2. Mild chronic small vessel ischemic changes with tiny cavitated infarction in the left cerebellar h emisphere.
--- NOTE | 2019-03-09 13:43 | PDOC.HOSPP ---
- Subjective Encounter Date: 03/09/19 Encounter Time: 13:41 Subjective: Pt seen for followup re: acute metabolic encephalopathy. Nonverbal, unable to complete ROS. - Objective Vital Signs & Weight: Vital Signs (12 hours) Temp Pulse Resp BP BP Pulse Ox 03/09/19 11:37 184/87 H 03/09/19 11:27 97.9 F 80 18 188/92 H 95 03/09/19 09:27 184/87 H 03/09/19 08:45 98.3 F 95 18 198/88 H 94 L 03/09/19 08:00 95 03/09/19 01:56 94 16 97 Weight Weight 222 lb 3.615 oz Most Recent Monitor Data Heart Rate from ECG 99 NIBP 167/87 NIBP BP-Mean 113 Respiration from ECG 28 SpO2 92 I&O: 03/08/19 03/09/19 03/10/19 06:59 06:59 06:59 Intake Total 841 810 Output Total 810 1400 Balance 31 -590 Result Diagrams: 03/09/19 03:58 03/09/19 03:58 Additional Labs: Accuchecks 03/09/19 03/08/19 03/08/19 11:32 21:08 16:01 POC Glucose 277 H 259 H 188 H Labs and MARs reviewed by me ROS - Medication Medications: Active Medications Generic Name Dose Route Start Last Admin Trade Name Freq PRN Reason Stop Dose Admin Acetaminophen 650 mg 03/08/19 16:01 03/08/19 16:08 Tylenol PO 650 mg Q4H PRN Administration Headache/Fever or Pain Albuterol/Ipratropium 3 ml 03/09/19 07:00 03/09/19 11:10 Duoneb NEB Not Given [id number] HAIDER Atorvastatin Calcium 80 mg 03/08/19 21:00 03/08/19 21:02 Lipitor PO 80 mg HS HAIDER Administration Clonidine 0.1 mg 03/08/19 22:14 03/09/19 11:37 Catapres PO 0.1 mg Q4H PRN Administration Hypertension Clopidogrel Bisulfate 75 mg 03/09/19 09:00 03/09/19 09:28 Plavix PO 75 mg DAILY HAIDER Administration Dextrose/Water 25 gm 03/06/19 10:47 03/06/19 13:02 Dextrose 50% SLOW IVP 25 gm PRN PRN Administration Hypoglycemia Diazepam 5 mg 03/09/19 12:00 03/09/19 12:09 Valium PO 03/09/19 14:00 5 mg 1200 HAIDER Administration Famotidine 20 mg 03/09/19 09:00 03/09/19 09:28 Pepcid PO 20 mg Q12HR HAIDER Administration Insulin Human Lispro 0 units 03/06/19 10:47 03/09/19 11:51 Humalog SC 4 unit .MILD SLIDING SCALE PRN Administration Mild Correctional Scale Lisinopril 40 mg 03/09/19 09:00 03/09/19 09:27 Zestril PO 40 mg DAILY HAIDER Administration Metformin HCl 1,000 mg 03/09/19 08:00 03/09/19 11:38 Glucophage PO 1,000 mg TID-WM HAIDER Administration Metoprolol Tartrate 100 mg 03/08/19 21:00 03/09/19 09:27 Lopressor PO 100 mg BID HAIDER Administration Morphine Sulfate 4 mg 03/09/19 03:57 03/09/19 07:12 Roxanol Solution SL 4 mg Q4H PRN Administration Pain Nicotine 21 mg 03/06/19 12:00 03/09/19 11:42 Nicoderm Patch TD 21 mg Q24HR HAIDER Administration Pantoprazole Sodium 40 mg 03/08/19 21:00 03/08/19 21:02 Protonix PO 40 mg HS HAIDER Administration Promethazine HCl 12.5 mg 03/07/19 08:16 03/08/19 19:42 Phenergan IM/IV 12.5 mg Q6H PRN Administration Nausea/Vomiting Venlafaxine HCl 75 mg 03/08/19 21:00 03/09/19 09:28 Effexor PO 75 mg BID HAIDER Administration - Exam General - other findings: Obese ENT: normocephalic atraumatic Neck: supple Neurological - other findings: Pt sitting in bed, rocking Psychiatric - other findings: Unable to assess Hosp A/P (1) Acute metabolic encephalopathy Code(s): G93.41 - METABOLIC ENCEPHALOPATHY Status: Acute (2) Dyslipidemia Code(s): E78.5 - HYPERLIPIDEMIA, UNSPECIFIED Status: Chronic (3) GERD (gastroesophageal reflux disease) Code(s): K21.9 - GASTRO-ESOPHAGEAL REFLUX DISEASE WITHOUT ESOPHAGITIS Status: Chronic (4) Hypertension Code(s): I10 - ESSENTIAL (PRIMARY) HYPERTENSION Status: Chronic (5) Obesity (BMI 30.0-34.9) Code(s): E66.9 - OBESITY, UNSPECIFIED Status: Chronic (6) Sepsis Code(s): A41.9 - SEPSIS, UNSPECIFIED ORGANISM Status: Ruled-out (7) Hypoglycemia Code(s): E16.2 - HYPOGLYCEMIA, UNSPECIFIED Status: Resolved - Plan plan discussed w/ family, PT/OT, out of bed/ambulate Discussed with mother, daughter in law and son by bedside, updated them. Transfer to medical floor, family unhappy pt is on oncology floor. Encephalopathy - consulted neurology Continue metformin. Continue Lipitor Continue Plavix. Needs discharge planning. Discussed with hospitalist at [facility] - declined lateral transfer.
--- NOTE | 2019-03-09 15:51 | HP ---
HISTORY OF PRESENT ILLNESS: A 48-year-old female who was last night transferred from the ICU to room 136. Still is quite encephalopathic. Refuses to eat breakfast, threw the food out. Multiple family members at the bedside including [id number] and mother, who are very unhappy and concerned why she is not getting any better. She is clearly encephalopathic, apparently was down for a period of time as possibly could be hypoxic injury, but no way to tell. We will order an EEG today. OBJECTIVE: VITAL SIGNS: Temperature 98, pulse 95, saturations are 98% on room air, blood pressure 138/88. CHEST: Decreased breath sounds. No wheezing. CARDIAC: Normal S1, S2. No gallops. EXTREMITIES: No masses. LABORATORY DATA: Unremarkable. Glucose 203. White count 7000, platelet count normal. IMPRESSION: 1. Metabolic encephalopathy. 2. Initial presentation hypoglycemia. 3. Diabetes. 4. Hypertension. 5. Respiratory failure. 6. Chronic obstructive pulmonary disease. Pulmonary parikh, she is stable. I am going to order EEG and Neurology consult. Blood sugars are stabilized, unclear why she is not verbalizing and not eating, though she told me this morning she was clearly not nauseated. We will await input from Neurology. Job ID: [id number]
[2019-03-09] MEDS ORDERED: cloNIDine 0.2 MG TAB PO PRN (16:57)
[2019-03-09] MEDS: Atorvastatin Calcium 40 MG TAB PO SCH (20:40)
--- NOTE | 2019-03-09 21:49 | CON ---
DATE OF CONSULTATION: 03/09/2019 History was mostly obtained from her family. This is a Telemedicine consult. CHIEF COMPLAINT: Possible anoxic injury. HISTORY OF PRESENT ILLNESS: The patient is a 48-year-old lady, who has chronic behavior problems, chronic drug use. She takes pain medications for fibromyalgia, complex regional pain syndrome. She also had idiopathic retroperitoneal fibrosis, which caused renal problems and she had stents in her kidney. This is her baseline medical history. Lately, she has been more agitated. At 6:00 a.m. on Wednesday, her partner found her unresponsive, gurgling, lying in vomit, and her blood sugar was too low to register. Her temperature was 92 when the time EMS saw her and she was intubated. Mother asked them to remove the ET tube since the patient had pre-existing wishes that she be DNR/DNI. She was on BiPAP and she has been walking with the therapists. Mother questions whether she might have had some anoxic injury because her duration of unresponsiveness is unknown and she would like to see why the patient is behaving differently. She has been very agitated during this admission per mother and her [id number]. Normally, she has rocking movements and she is depressed, and she has some movements of her body, but she is not agitated to where she is pulling IV lines at this time. FAMILY HISTORY: Her great grandmother had CVA. Great grandfather of massive infarct. Great-uncle of [place]. Maternal grandmother and grandfather from cancer. SOCIAL HISTORY: She smokes three packs of cigarettes per day and she is using prescription pain medication and intensively overuse them. PREVIOUS MEDICAL HISTORY: Positive for fibromyalgia, complex regional pain syndrome, retroperitoneal fibrosis, renal stents, coronary artery disease with stents. She is also diabetic and has respiratory failure with COPD. SOCIAL HISTORY: Lives with her family and she is somewhat agitated according to lately per family and she does not use alcohol. She stopped using heroin four years ago and she smokes 2-3 cigarettes per day. ALLERGIES: SHE IS ALLERGIC TO ATIVAN AND MORPHINE. LABORATORY DATA: Her current lab workup: White count 7.7, hemoglobin 13.1, hematocrit 37.7, and platelet count 206. Chemistry; sodium 135, potassium 3.6, chloride 100, bicarb 24, BUN 16, creatinine 0.84, glucose 203. Toxicology in urine positive for benzodiazepine. Her CT scan was completed and at that time, there was no acute intracranial abnormalities. I requested MRI of the brain when I saw her earlier this afternoon and her MRI of the brain did not show any acute intracranial abnormality. Mild chronic small-vessel ischemic changes with tiny cavitated infarct in the left cerebellar hemisphere and these are stable chronic findings. REVIEW OF SYSTEMS: Difficult to obtain due to patient's cognitive and mental status. PHYSICAL EXAMINATION: VITAL SIGNS: Temperature 97.9, pulse 80, respiratory rate 18, and O2 sats 95, blood pressure 188/92. GENERAL APPEARANCE: The patient is lying down in bed, then she sat up. She has involuntary movements of her jaw and mouth. She also has rocking movement of her body. Initially, she was nonverbal but when prompted, she was able to answer questions. CHEST: Clear vesicular breathing. CARDIOVASCULAR: S1 and S2 heard. No murmurs. ABDOMEN: Soft, nontender. NEUROLOGICAL: Prefers to be nonverbal. She has abnormal movements of her head and her mouth, as well as her trunk which I suspect may be chronic. At this time, she has limited verbal output spontaneously but when spoken to and asked questions, she was able to answer questions appropriately. She was oriented to time, place and person, and was able to follow commands. Cranial nerves 2-12. Pupils are 2 mm, reactive. Normal extraocular movements. Tongue midline. No atrophy noted. Normal facial sensation bilaterally. No facial asymmetry. Tongue midline. Normal elevation of palate. Motor, bulk normal, tone normal. Strength 5/5 in both upper and lower extremities in iliopsoas, hamstrings, quadriceps, ankle dorsiflexion, plantar flexion, deltoid, biceps, triceps, wrist extension and flexion bilaterally. Deep tendon reflexes were 2+ throughout. Sensory is normal to touch. Cerebellar, normal [id number] and [id number]. IMPRESSION: The patient is a 48-year-old lady with a hypoglycemic event, which prompted EMS call and she was brought to the hospital. There was no seizures that were witnessed. Her partner sleeps right next to her. He did not notice any involuntary movements prior to this event. At this time, the patient seems to have more behavior issues where she is not verbal and not talking to the family like she should and eating like she should, and she is not interactive which is the main complaint. They would like to see her recover and also understand what is causing this behavior issues. She is known to have depression and prior history of drug use and some recent agitation. Her examination is essentially normal except for her being nonverbal and having some involuntary movements, which could be tardive dyskinesia. RECOMMENDATIONS: 1. Please consult Psychiatry because I do think there is a behavior component to this manifestation that she is not talking and not eating and helping herself like she should. 2. Her MRI is negative for any acute event or anoxic injury or any changes in the basal ganglia at this time. 3. I will follow up tomorrow and discuss the results with the family. Call me if you have questions. Job ID: [id number]
[2019-03-09] MEDS: hydrALAZINE 25 MG TAB PO SCH (22:01)
[2019-03-10] MEDS: Morphine 10 MG/0.5 ML ORAL SYRINGE SL PRN ×2 (04:15→19:43)
[2019-03-10 05:13] LABS: Anion Gap 14 mmol/L (10-20); BUN (Urea Nitrogen) 18 mg/dL (7.0-18.7); Calc. Creatinine Clearance 135 mL/min (70-130); Calcium 9.3 mg/dL (7.8-10.44); Carbon Dioxide 24 mmol/L (22-29); Chloride 100 mmol/L (98-107); Estimated GFR-MDRD 76; Glucose 240 mg/dL (70-105); Potassium 3.9 mmol/L (3.5-5.1); Sodium 134 mmol/L (136-145)
[2019-03-10 05:20] LABS: Hemoglobin 12.7 g/dL (12.0-16.0); Mean Corpuscular HGB CONC 33.4 g/dL (32.0-36.0); Mean Corpuscular Hemoglobin 29.6 pg (27.0-31.0); Mean Corpuscular Volume 88.7 fL (78.0-98.0); Mean Platelet Volume 7.2 fL (7.4-10.4); Platelet Count 197 thou/uL (130-400); RBC Distribution Width 13.3 % (11.5-14.5); Red Blood Cell (RBC) Count 4.29 mill/uL (4.20-5.40); White Blood Cell (WBC) Count 7.5 thou/uL (4.8-10.8)
[2019-03-10 05:21] LABS: Band 6 % (5-11); Eosinophils 3 % (0-10); Lymphocytes 8 % (21-51); MDiff Complete? YES; Monocytes 2 % (0-10); Neutrophil 81 % (42-75); Platelet Morphology Comment Appears Adequate; RBC Morphology Normal
[2019-03-10] MEDS: HumaLOG 300 UNITS/3 ML VIAL SC PRN ×3 (05:57→21:05)
[2019-03-10] MEDS: cloNIDine 0.2 MG TAB PO PRN (06:24)
[2019-03-10] MEDS: predniSONE 5 MG TAB PO SCH (09:38)
[2019-03-10] MEDS: Clopidogrel Bisulfate 75 MG TAB PO SCH (09:38)
[2019-03-10] MEDS: Lisinopril 20 MG TAB PO SCH (09:38)
[2019-03-10] MEDS: hydrALAZINE 25 MG TAB PO SCH ×3 (09:38→21:04)
[2019-03-10] MEDS: Famotidine 20 MG TAB PO SCH ×2 (09:39→21:04)
[2019-03-10] MEDS: metFORMIN 500 MG TAB PO SCH ×2 (09:39→12:54)
[2019-03-10] MEDS: Metoprolol Tartrate 100 MG TAB PO SCH ×2 (09:41→21:05)
[2019-03-10] MEDS ORDERED: Saccharomyces boulardii 250 MG CAP PO SCH (10:30)
--- NOTE | 2019-03-10 11:52 | PRG ---
DATE OF TELEMEDICINE SERVICE: 03/10/2019, PATRICIA HOLMAN CHIEF COMPLAINT: Altered mental status. INTERVAL HISTORY: The patient is sleepy this morning. She received morphine last night for pain. She also has been having hyperglycemia. [id number] is by her bedside today and they understand her situation is more likely behavioral than medical. At this time, her MRI results showed no acute intracranial abnormality and she had mild chronic microvascular ischemic changes. LABORATORY DATA: Her lab workup right now showed white count 7.5, hemoglobin 12.7, hematocrit 38.0, platelets 197. Chemistry; sodium 134, potassium 3.9, chloride 100, bicarb 24, BUN 18, creatinine 0.8, glucose 240. PHYSICAL EXAMINATION: VITAL SIGNS: Blood pressure was 147/75, temperature 97.6, pulse 88, and respiratory rate 18. NEUROLOGIC: She was sleepy, but able to follow commands. She is oriented to place and time and person. Cranial nerves, no facial asymmetry noted. Motor exam, normal strength bilaterally. IMPRESSION: The patient is a 48-year-old lady, who was admitted following hypoglycemic event. She has unstable diabetes. The daughter in-law says her normal blood sugars are in the 500s to 600s, right now they are in the 200s. Her stroke workup is negative and she has multi-vascular ischemic changes, which can cause long-term problems such as cognitive issues. She did not have any involuntary movements, which I noted yesterday, but today, she is more sleepy, likely sedation from the pain medicine. She is complex with regard to her medical issues including chronic pain and fibromyalgia, and high requirements for pain medications, and unstable diabetes, all of which need to be addressed, but at this time, I do think her behavior issues are complicating her progress. RECOMMENDATIONS: As planned. I agree with [facility] consult. Call Neurology if you have any further questions. Job ID: [id number] [facility]ENTER[facility]
[2019-03-10] MEDS: Nicotine 21 MG PATCH TD SCH (12:58)
--- NOTE | 2019-03-10 13:53 | PDOC.HOSPP ---
- Subjective Encounter Date: 03/10/19 Encounter Time: 07:40 Subjective: Pt seen for followup re: c. difficile diarrhea. Multiple bowel movements. Pt says she feels fine, denies any complaints other than diarrhea. - Objective Vital Signs & Weight: Vital Signs (12 hours) Temp Pulse Resp BP BP Pulse Ox 03/10/19 11:00 97.6 F 88 18 147/75 H 96 03/10/19 09:38 96 150/78 H 03/10/19 09:35 93 L 03/10/19 07:15 98.1 F 96 18 150/78 H 93 L 03/10/19 06:36 90 16 100 03/10/19 06:24 184/84 H 03/10/19 06:00 89 20 184/84 H 97 03/10/19 03:53 98.9 F 78 18 132/96 H 96 Weight Weight 222 lb 7 oz Most Recent Monitor Data Heart Rate from ECG 99 NIBP 167/87 NIBP BP-Mean 113 Respiration from ECG 28 SpO2 92 I&O: 03/09/19 03/10/19 03/11/19 06:59 06:59 06:59 Intake Total 810 1700 Output Total 1400 Balance -590 1700 Result Diagrams: 03/10/19 04:12 03/10/19 04:12 Additional Labs: Accuchecks 03/10/19 03/10/19 03/09/19 11:17 03:55 20:40 POC Glucose 285 H 262 H 227 H 03/09/19 16:21 POC Glucose 258 H Labs and MARs reviewed by me ROS - Review of Systems Cardiovascular: denies: chest pain, palpitations, orthopnea, paroxysmal noc. dyspnea, edema, light headedness Gastrointestinal: reports: diarrhea. denies: nausea, vomitting, abdominal pain , constipation, melena, hematochezia - Medication Medications: Active Medications Generic Name Dose Route Start Last Admin Trade Name Freq PRN Reason Stop Dose Admin Acetaminophen 650 mg 03/08/19 16:01 03/08/19 16:08 Tylenol PO 650 mg Q4H PRN Administration Headache/Fever or Pain Albuterol/Ipratropium 3 ml 03/09/19 07:00 03/10/19 11:39 Duoneb NEB 3 ml [id number] HAIDER Administration Atorvastatin Calcium 80 mg 03/08/19 21:00 03/09/19 20:40 Lipitor PO 80 mg HS HAIDER Administration Clonidine 0.2 mg 03/10/19 02:14 03/10/19 06:24 Catapres PO 0.2 mg Q4H PRN Administration Hypertension Clopidogrel Bisulfate 75 mg 03/09/19 09:00 03/10/19 09:38 Plavix PO 75 mg DAILY HAIDER Administration Dextrose/Water 25 gm 03/06/19 10:47 03/06/19 13:02 Dextrose 50% SLOW IVP 25 gm PRN PRN Administration Hypoglycemia Famotidine 20 mg 03/09/19 09:00 03/10/19 09:39 Pepcid PO 20 mg Q12HR HAIDER Administration Hydralazine HCl 25 mg 03/09/19 21:00 03/10/19 09:38 Apresoline PO 25 mg TID HAIDER Administration Lisinopril 40 mg 03/09/19 09:00 03/10/19 09:38 Zestril PO 40 mg DAILY HAIDER Administration Metoprolol Tartrate 100 mg 03/08/19 21:00 03/10/19 09:41 Lopressor PO 100 mg BID HAIDER Administration Morphine Sulfate 4 mg 03/09/19 03:57 03/10/19 04:15 Roxanol Solution SL 4 mg Q4H PRN Administration Pain Nicotine 21 mg 03/06/19 12:00 03/10/19 12:58 Nicoderm Patch TD 21 mg Q24HR HAIDER Administration Pantoprazole Sodium 40 mg 03/08/19 21:00 03/09/19 20:41 Protonix PO 40 mg HS HAIDER Administration Prednisone 10 mg 03/10/19 08:00 03/10/19 09:38 Prednisone PO 10 mg QAM-WM HAIDER Administration Promethazine HCl 12.5 mg 03/07/19 08:16 03/08/19 19:42 Phenergan IM/IV 12.5 mg Q6H PRN Administration Nausea/Vomiting Venlafaxine HCl 75 mg 03/08/19 21:00 03/10/19 09:39 Effexor PO 75 mg BID HAIDER Administration - Exam NAD Eye: anicteric sclera ENT: normocephalic atraumatic Neck: supple Heart: RRR Respiratory: CTAB Gastrointestinal: soft, non-tender, normal bowel sounds Psychiatric - other findings: Pt answering some questions but not at other times Hosp A/P (1) Clostridium difficile diarrhea Code(s): A04.72 - ENTEROCOLITIS D/T CLOSTRIDIUM DIFFICILE, NOT SPCF RECUR Status: Acute (2) Acute metabolic encephalopathy Code(s): G93.41 - METABOLIC ENCEPHALOPATHY Status: Acute (3) Dyslipidemia Code(s): E78.5 - HYPERLIPIDEMIA, UNSPECIFIED Status: Chronic (4) GERD (gastroesophageal reflux disease) Code(s): K21.9 - GASTRO-ESOPHAGEAL REFLUX DISEASE WITHOUT ESOPHAGITIS Status: Chronic (5) Hypertension Code(s): I10 - ESSENTIAL (PRIMARY) HYPERTENSION Status: Chronic (6) Obesity (BMI 30.0-34.9) Code(s): E66.9 - OBESITY, UNSPECIFIED Status: Chronic (7) Sepsis Code(s): A41.9 - SEPSIS, UNSPECIFIED ORGANISM Status: Ruled-out (8) Hypoglycemia Code(s): E16.2 - HYPOGLYCEMIA, UNSPECIFIED Status: Resolved - Plan plan discussed w/ family, continue antibiotics, out of bed/ambulate Start enteral vancomycin and Florastor. Discussed with mother and daughter in law by bedside, updated them. Encephalopathy - likely behavioural component. MRI is negative for any acute changes. Continue Lipitor Continue Plavix. Needs discharge planning. Inpt Rehab declined. Pt will need MR eval when medically cleared due to possible suicide attempt.
[2019-03-10] MEDS: Vancomycin HCl 25 MG/ML Oral PO SCH ×3 (14:28→23:08)
--- NOTE | 2019-03-10 16:27 | EKG ---
Test Reason : Blood Pressure : / mmHG Vent. Rate : 085 BPM Atrial Rate : 085 BPM P-R Int : 142 ms QRS Dur : 084 ms QT Int : 382 ms P-R-T Axes : 058 -37 101 degrees QTc Int : 454 ms Normal sinus rhythm Left axis deviation Inferior infarct (cited on or before 27-AUG-2010) T wave abnormality, consider lateral ischemia Abnormal ECG When compared with ECG of 06-MAR-2019 06:07, (Unconfirmed) Criteria for Septal infarct are no longer Present Non-specific change in ST segment in Anterior leads Confirmed by BRODIE MENDOZA, DR. Baca ([id number]) on 03/10/2019 4:26:49 PM Referred By: MAYCO Confirmed By:DR. Keven CALLOWAY MD
[2019-03-10] MEDS: Atorvastatin Calcium 40 MG TAB PO SCH (21:03)
[2019-03-11] MEDS: Morphine 10 MG/0.5 ML ORAL SYRINGE SL PRN ×2 (01:05→20:26)
[2019-03-11] MEDS: Vancomycin HCl 25 MG/ML Oral PO SCH ×3 (05:35→18:32)
[2019-03-11] MEDS: HumaLOG 300 UNITS/3 ML VIAL SC PRN ×4 (05:36→20:39)
[2019-03-11 05:49] LABS: #Basophils 0.1 thou/uL (0.0-0.2); #Eosinphils 0.1 thou/uL (0.0-0.7); #Lymphocytes 1.9 thou/uL (1.20-3.40); #Monocytes 0.8 thou/uL (0.11-0.59); #Neutrophils 4.1 thou/uL (1.40-6.50); %Basophils 0.9 % (0.0-1.0); %Eosinophils 1.9 % (0.0-10.0); %Lymphocytes 27.1 % (21.0-51.0); %Monocytes 11.7 % (0.0-10.0); %Neutrophils 58.4 % (42.0-75.0); Hemoglobin 12.9 g/dL (12.0-16.0); Mean Corpuscular HGB CONC 34.9 g/dL (32.0-36.0); Mean Corpuscular Hemoglobin 30.7 pg (27.0-31.0); Mean Corpuscular Volume 87.9 fL (78.0-98.0); Mean Platelet Volume 7.1 fL (7.4-10.4); Platelet Count 224 thou/uL (130-400); RBC Distribution Width 13.5 % (11.5-14.5); Red Blood Cell (RBC) Count 4.21 mill/uL (4.20-5.40); White Blood Cell (WBC) Count 7.1 thou/uL (4.8-10.8)
[2019-03-11 06:06] LABS: Anion Gap 15 mmol/L (10-20); BUN (Urea Nitrogen) 16 mg/dL (7.0-18.7); Calc. Creatinine Clearance 133 mL/min (70-130); Calcium 9.1 mg/dL (7.8-10.44); Carbon Dioxide 24 mmol/L (22-29); Chloride 100 mmol/L (98-107); Estimated GFR-MDRD 74; Glucose 212 mg/dL (70-105); Potassium 3.3 mmol/L (3.5-5.1); Sodium 136 mmol/L (136-145)
[2019-03-11] MEDS: predniSONE 5 MG TAB PO SCH (08:51)
[2019-03-11] MEDS: Saccharomyces boulardii 250 MG CAP PO SCH (08:51)
[2019-03-11] MEDS: Clopidogrel Bisulfate 75 MG TAB PO SCH (08:52)
[2019-03-11] MEDS: hydrALAZINE 25 MG TAB PO SCH ×3 (08:52→20:33)
[2019-03-11] MEDS: Famotidine 20 MG TAB PO SCH ×2 (08:52→20:33)
[2019-03-11] MEDS: Lisinopril 20 MG TAB PO SCH (08:52)
[2019-03-11] MEDS: Metoprolol Tartrate 100 MG TAB PO SCH ×2 (08:53→20:34)
[2019-03-11] MEDS: Nicotine 21 MG PATCH TD SCH (11:35)
[2019-03-11] MEDS: Nitroglycerin 0.4 MG TAB (25 Tab Bottle) SL PRN ×3 (12:53→13:44)
[2019-03-11] MEDS ORDERED: Ketorolac Tromethamine 30 MG/ML VIAL IVP SCH (13:15)
[2019-03-11] MEDS ORDERED: Ketorolac Tromethamine 30 MG/ML VIAL IM SCH (14:00)
[2019-03-11 14:16] LABS: Troponin I 0.018 ng/mL (< 0.028)
--- NOTE | 2019-03-11 15:33 | PDOC.HOSPP ---
- Subjective Encounter Date: 03/11/19 Encounter Time: 07:40 Subjective: Pt seen for followup re; clostridium difficile diarrhea. Reports diarrhea is better. - Objective Vital Signs & Weight: Vital Signs (12 hours) Temp Pulse Resp BP BP BP Pulse Ox 03/11/19 15:18 97 16 95 03/11/19 11:13 85 16 98 03/11/19 11:00 97.9 F 80 18 147/81 H 97 03/11/19 08:52 98 144/83 H 03/11/19 08:00 97.8 F 98 18 144/83 H 95 03/11/19 07:47 87 16 96 03/11/19 05:00 97.8 F 78 18 150/74 H 95 Weight Weight 223 lb 2 oz Most Recent Monitor Data Heart Rate from ECG 99 NIBP 167/87 NIBP BP-Mean 113 Respiration from ECG 28 SpO2 92 I&O: 03/10/19 03/11/19 03/12/19 06:59 06:59 06:59 Intake Total 1700 1320 Output Total 200 Balance 1700 1120 Result Diagrams: 03/11/19 05:04 03/11/19 05:04 Additional Labs: Accuchecks 03/11/19 03/11/19 03/10/19 11:32 04:03 20:53 POC Glucose 294 H 211 H 371 H 03/10/19 17:01 POC Glucose 316 H labs and MARs reviewed by me GALEANA - Review of Systems Respiratory: denies: cough, shortness of breath, SOB with excertion, pleuritic pain, wheezing Gastrointestinal: reports: diarrhea. denies: nausea, vomitting, abdominal pain , constipation, melena, hematochezia - Medication Medications: Active Medications Generic Name Dose Route Start Last Admin Trade Name Freq PRN Reason Stop Dose Admin Acetaminophen 650 mg 03/08/19 16:01 03/08/19 16:08 Tylenol PO 650 mg Q4H PRN Administration Headache/Fever or Pain Albuterol/Ipratropium 3 ml 03/09/19 07:00 03/11/19 15:18 Duoneb NEB 3 ml [id number] HAIDER Administration Atorvastatin Calcium 80 mg 03/08/19 21:00 03/10/19 21:03 Lipitor PO 80 mg HS HAIDER Administration Clonidine 0.2 mg 03/10/19 02:14 03/10/19 06:24 Catapres PO 0.2 mg Q4H PRN Administration Hypertension Clopidogrel Bisulfate 75 mg 03/09/19 09:00 03/11/19 08:52 Plavix PO 75 mg DAILY HAIDER Administration Dextrose/Water 25 gm 03/06/19 10:47 03/06/19 13:02 Dextrose 50% SLOW IVP 25 gm PRN PRN Administration Hypoglycemia Famotidine 20 mg 03/09/19 09:00 03/11/19 08:52 Pepcid PO 20 mg Q12HR HAIDER Administration Hydralazine HCl 25 mg 03/09/19 21:00 03/11/19 08:52 Apresoline PO 25 mg TID HAIDER Administration Insulin Human Lispro 0 units 03/10/19 10:24 03/11/19 11:36 Humalog SC 6 unit .MODERATE SLIDING SC PRN Administration Moderate Correctional Scale Ketorolac Tromethamine 30 mg 03/11/19 14:00 03/11/19 14:17 Toradol IM 03/11/19 16:00 30 mg NOW HAIDER Administration Lisinopril 40 mg 03/09/19 09:00 03/11/19 08:52 Zestril PO 40 mg DAILY PENDING SALE TO [facility] Administration Metoprolol Tartrate 100 mg 03/08/19 21:00 03/11/19 08:53 Lopressor PO 100 mg BID PENDING SALE TO [facility] Administration Morphine Sulfate 4 mg 03/09/19 03:57 03/11/19 01:05 Roxanol Solution SL 4 mg Q4H PRN Administration Pain Nicotine 21 mg 03/06/19 12:00 03/11/19 11:35 Nicoderm Patch TD 21 mg Q24HR HAIDER Administration Nitroglycerin 0.4 mg 03/11/19 10:55 03/11/19 13:44 Nitrostat SL 0.4 mg Q5MIN PRN Administration Chest Pain Pantoprazole Sodium 40 mg 03/08/19 21:00 03/10/19 21:05 Protonix PO 40 mg HS HAIDER Administration Prednisone 10 mg 03/10/19 08:00 03/11/19 08:51 Prednisone PO 10 mg QAM-WM HAIDER Administration Promethazine HCl 12.5 mg 03/07/19 08:16 03/08/19 19:42 Phenergan IM/IV 12.5 mg Q6H PRN Administration Nausea/Vomiting Saccharomyces Boulardii 250 mg 03/11/19 09:00 03/11/19 08:51 Florastor PO 250 mg DAILY HAIDER Administration Vancomycin HCl 250 mg 03/10/19 12:00 03/11/19 11:35 First Vancomycin PO 250 mg Q6H HAIDER Administration Venlafaxine HCl 75 mg 03/08/19 21:00 03/11/19 08:53 Effexor PO 75 mg BID HAIDER Administration - Exam General - other findings: Obese Eye: anicteric sclera ENT: normocephalic atraumatic, moist mucosa Neck: supple, no thyromegaly Heart: RRR Respiratory: CTAB Gastrointestinal: soft Neurological: no weakness Psychiatric: normal affect Hosp A/P (1) Clostridium difficile diarrhea Code(s): A04.72 - ENTEROCOLITIS D/T CLOSTRIDIUM DIFFICILE, NOT SPCF RECUR Status: Acute (2) Acute metabolic encephalopathy Code(s): G93.41 - METABOLIC ENCEPHALOPATHY Status: Acute (3) Dyslipidemia Code(s): E78.5 - HYPERLIPIDEMIA, UNSPECIFIED Status: Chronic (4) GERD (gastroesophageal reflux disease) Code(s): K21.9 - GASTRO-ESOPHAGEAL REFLUX DISEASE WITHOUT ESOPHAGITIS Status: Chronic (5) Hypertension Code(s): I10 - ESSENTIAL (PRIMARY) HYPERTENSION Status: Chronic (6) Obesity (BMI 30.0-34.9) Code(s): E66.9 - OBESITY, UNSPECIFIED Status: Chronic (7) Sepsis Code(s): A41.9 - SEPSIS, UNSPECIFIED ORGANISM Status: Ruled-out (8) Hypoglycemia Code(s): E16.2 - HYPOGLYCEMIA, UNSPECIFIED Status: Resolved - Plan continue antibiotics Improving, continue enteral vancomycin and Florastor. Encephalopathy - Improving, likely behavioural component. Continue Lipitor and Needs discharge planning.
[2019-03-11] MEDS: Atorvastatin Calcium 40 MG TAB PO SCH (20:33)
[2019-03-12] MEDS: Vancomycin HCl 25 MG/ML Oral PO SCH ×4 (00:17→16:54)
[2019-03-12] MEDS: Morphine 10 MG/0.5 ML ORAL SYRINGE SL PRN (06:20)
[2019-03-12] MEDS: HumaLOG 300 UNITS/3 ML VIAL SC PRN ×4 (06:24→21:11)
[2019-03-12] MEDS: predniSONE 5 MG TAB PO SCH (08:46)
[2019-03-12] MEDS: Metoprolol Tartrate 100 MG TAB PO SCH ×2 (08:47→21:08)
[2019-03-12] MEDS: hydrALAZINE 25 MG TAB PO SCH ×3 (08:47→21:08)
[2019-03-12] MEDS: Famotidine 20 MG TAB PO SCH ×2 (08:47→21:08)
[2019-03-12] MEDS: Clopidogrel Bisulfate 75 MG TAB PO SCH (08:47)
[2019-03-12] MEDS: Saccharomyces boulardii 250 MG CAP PO SCH (08:47)
[2019-03-12] MEDS: Lisinopril 20 MG TAB PO SCH (08:48)
[2019-03-12 09:37] LABS: #Basophils 0.1 thou/uL (0.0-0.2); #Eosinphils 0.1 thou/uL (0.0-0.7); #Monocytes 0.7 thou/uL (0.11-0.59); #Neutrophils 4.5 thou/uL (1.40-6.50); %Basophils 0.9 % (0.0-1.0); %Eosinophils 1.5 % (0.0-10.0); %Lymphocytes 26.7 % (21.0-51.0); %Monocytes 9.4 % (0.0-10.0); %Neutrophils 61.5 % (42.0-75.0); Hemoglobin 11.6 g/dL (12.0-16.0); Mean Corpuscular HGB CONC 35.7 g/dL (32.0-36.0); Mean Corpuscular Hemoglobin 30.7 pg (27.0-31.0); Mean Corpuscular Volume 86.1 fL (78.0-98.0); Mean Platelet Volume 6.9 fL (7.4-10.4); Platelet Count 185 thou/uL (130-400); RBC Distribution Width 13.2 % (11.5-14.5); Red Blood Cell (RBC) Count 3.79 mill/uL (4.20-5.40); White Blood Cell (WBC) Count 7.4 thou/uL (4.8-10.8)
[2019-03-12 09:52] LABS: Anion Gap 13 mmol/L (10-20); BUN (Urea Nitrogen) 20 mg/dL (7.0-18.7); Calc. Creatinine Clearance 126 mL/min (70-130); Calcium 8.7 mg/dL (7.8-10.44); Carbon Dioxide 26 mmol/L (22-29); Chloride 101 mmol/L (98-107); Estimated GFR-MDRD 69; Glucose 213 mg/dL (70-105); Potassium 3.8 mmol/L (3.5-5.1); Sodium 136 mmol/L (136-145)
[2019-03-12] MEDS: Nicotine 21 MG PATCH TD SCH (11:17)
--- NOTE | 2019-03-12 14:39 | PDOC.HOSPP ---
- Subjective Encounter Date: 03/12/19 Encounter Time: 14:38 Subjective: Pt seen for followup re; clostridium difficile diarrhea. Says she feels better. No diarrhea. - Objective Vital Signs & Weight: Vital Signs (12 hours) Temp Pulse Resp BP BP Pulse Ox 03/12/19 10:13 83 12 03/12/19 08:48 158/74 H 03/12/19 08:47 84 158/74 H 03/12/19 08:21 97.6 F 84 20 158/74 H 95 03/12/19 08:00 95 03/12/19 06:13 83 12 97 Weight Weight 224 lb 6.889 oz Most Recent Monitor Data Heart Rate from ECG 99 NIBP 167/87 NIBP BP-Mean 113 Respiration from ECG 28 SpO2 92 I&O: 03/11/19 03/12/19 03/13/19 06:59 06:59 06:59 Intake Total 1320 100 Output Total 200 Balance 1120 100 Result Diagrams: 03/12/19 09:23 03/12/19 09:23 Additional Labs: Accuchecks 03/12/19 03/12/19 03/11/19 11:30 05:50 19:38 POC Glucose 286 H 295 H 297 H 03/11/19 16:28 POC Glucose 398 H Labs and MARs reviewed by ROS - Review of Systems Cardiovascular: denies: chest pain, palpitations, orthopnea, paroxysmal noc. dyspnea, edema, light headedness Gastrointestinal: denies: nausea, vomitting, abdominal pain, diarrhea, constipation, melena, hematochezia - Medication Medications: Active Medications Generic Name Dose Route Start Last Admin Trade Name Freq PRN Reason Stop Dose Admin Acetaminophen 650 mg 03/08/19 16:01 03/08/19 16:08 Tylenol PO 650 mg Q4H PRN Administration Headache/Fever or Pain Albuterol/Ipratropium 3 ml 03/09/19 07:00 03/12/19 10:13 Duoneb NEB 3 ml [id number] HAIDER Administration Atorvastatin Calcium 80 mg 03/08/19 21:00 03/11/19 20:33 Lipitor PO 80 mg HS HAIDER Administration Clonidine 0.2 mg 03/10/19 02:14 03/10/19 06:24 Catapres PO 0.2 mg Q4H PRN Administration Hypertension Clopidogrel Bisulfate 75 mg 03/09/19 09:00 03/12/19 08:47 Plavix PO 75 mg DAILY HAIDER Administration Dextrose/Water 25 gm 03/06/19 10:47 03/06/19 13:02 Dextrose 50% SLOW IVP 25 gm PRN PRN Administration Hypoglycemia Famotidine 20 mg 03/09/19 09:00 03/12/19 08:47 Pepcid PO 20 mg Q12HR HAIDER Administration Hydralazine HCl 25 mg 03/09/19 21:00 03/12/19 08:47 Apresoline PO 25 mg TID HAIDER Administration Insulin Human Lispro 0 units 03/10/19 10:24 03/12/19 12:29 Humalog SC 6 unit .MODERATE SLIDING SC PRN Administration Moderate Correctional Scale Isosorbide Mononitrate 30 mg 03/12/19 09:00 03/12/19 08:47 Imdur Er PO 30 mg DAILY HAIDER Administration Lisinopril 40 mg 03/09/19 09:00 03/12/19 08:48 Zestril PO 40 mg DAILY HAIDER Administration Metoprolol Tartrate 100 mg 03/08/19 21:00 03/12/19 08:47 Lopressor PO 100 mg BID [facility] Administration Morphine Sulfate 4 mg 03/09/19 03:57 03/12/19 06:20 Roxanol Solution SL 4 mg Q4H PRN Administration Pain Nicotine 21 mg 03/06/19 12:00 03/12/19 11:17 Nicoderm Patch TD 21 mg Q24HR HAIDER Administration Nitroglycerin 0.4 mg 03/11/19 10:55 03/11/19 13:44 Nitrostat SL 0.4 mg Q5MIN PRN Administration Chest Pain Pantoprazole Sodium 40 mg 03/08/19 21:00 03/11/19 20:34 Protonix PO 40 mg HS [facility] Administration Prednisone 10 mg 03/10/19 08:00 03/12/19 08:46 Prednisone PO 10 mg QAM-WM HAIDER Administration Promethazine HCl 12.5 mg 03/07/19 08:16 03/08/19 19:42 Phenergan IM/IV 12.5 mg Q6H PRN Administration Nausea/Vomiting Ranolazine 500 mg 03/11/19 21:00 03/12/19 08:47 Ranexa PO 500 mg BID HAIDER Administration Saccharomyces Boulardii 250 mg 03/11/19 09:00 03/12/19 08:47 Florastor PO 250 mg DAILY HAIDER Administration Vancomycin HCl 250 mg 03/10/19 12:00 03/12/19 11:17 First Vancomycin PO 250 mg Q6H HAIDER Administration Venlafaxine HCl 75 mg 03/08/19 21:00 03/12/19 08:47 Effexor PO 75 mg BID HAIDER Administration - Exam General - other findings: obese Eye: anicteric sclera ENT: normocephalic atraumatic, moist mucosa Neck: supple, no thyromegaly Heart: RRR, no rubs Respiratory: CTAB, no wheezes Gastrointestinal: soft, non-tender Neurological: no weakness Musculoskeletal: no muscle wasting Psychiatric: normal affect Hosp A/P (1) Clostridium difficile diarrhea Code(s): A04.72 - ENTEROCOLITIS D/T CLOSTRIDIUM DIFFICILE, NOT SPCF RECUR Status: Acute (2) Acute metabolic encephalopathy Code(s): G93.41 - METABOLIC ENCEPHALOPATHY Status: Acute (3) Dyslipidemia Code(s): E78.5 - HYPERLIPIDEMIA, UNSPECIFIED Status: Chronic (4) GERD (gastroesophageal reflux disease) Code(s): K21.9 - GASTRO-ESOPHAGEAL REFLUX DISEASE WITHOUT ESOPHAGITIS Status: Chronic (5) Hypertension Code(s): I10 - ESSENTIAL (PRIMARY) HYPERTENSION Status: Chronic (6) Obesity (BMI 30.0-34.9) Code(s): E66.9 - OBESITY, UNSPECIFIED Status: Chronic (7) Sepsis Code(s): A41.9 - SEPSIS, UNSPECIFIED ORGANISM Status: Ruled-out (8) Hypoglycemia Code(s): E16.2 - HYPOGLYCEMIA, UNSPECIFIED Status: Resolved - Plan continue antibiotics continue enteral vancomycin and Florastor. Encephalopathy - Improving, likely behavioural component. Continue Lipitor Pt is medically cleared foir [facility] evaluation.
[2019-03-12] MEDS ORDERED: glipiZIDE 5 MG TAB PO SCH (16:30)
[2019-03-12] MEDS: glipiZIDE 5 MG TAB PO SCH (16:54)
[2019-03-12] MEDS: Atorvastatin Calcium 40 MG TAB PO SCH (21:07)
[2019-03-13] MEDS: Vancomycin HCl 25 MG/ML Oral PO SCH ×5 (00:05→23:05)
[2019-03-13] MEDS: HumaLOG 300 UNITS/3 ML VIAL SC PRN ×4 (05:36→21:09)
[2019-03-13 05:53] LABS: #Basophils 0.1 thou/uL (0.0-0.2); #Eosinphils 0.1 thou/uL (0.0-0.7); #Lymphocytes 2.2 thou/uL (1.20-3.40); #Monocytes 0.6 thou/uL (0.11-0.59); #Neutrophils 4.8 thou/uL (1.40-6.50); %Eosinophils 1.4 % (0.0-10.0); %Lymphocytes 27.8 % (21.0-51.0); %Neutrophils 61.8 % (42.0-75.0); Hemoglobin 12.6 g/dL (12.0-16.0); Mean Corpuscular HGB CONC 33.7 g/dL (32.0-36.0); Mean Corpuscular Hemoglobin 28.9 pg (27.0-31.0); Mean Platelet Volume 7.2 fL (7.4-10.4); Platelet Count 271 thou/uL (130-400); RBC Distribution Width 13.2 % (11.5-14.5); Red Blood Cell (RBC) Count 4.35 mill/uL (4.20-5.40); White Blood Cell (WBC) Count 7.8 thou/uL (4.8-10.8)
[2019-03-13 06:12] LABS: Anion Gap 14 mmol/L (10-20); BUN (Urea Nitrogen) 17 mg/dL (7.0-18.7); Calc. Creatinine Clearance 132 mL/min (70-130); Calcium 9.4 mg/dL (7.8-10.44); Carbon Dioxide 26 mmol/L (22-29); Chloride 98 mmol/L (98-107); Estimated GFR-MDRD 73; Glucose 168 mg/dL (70-105); Potassium 3.7 mmol/L (3.5-5.1); Sodium 134 mmol/L (136-145)
[2019-03-13] MEDS: Metoprolol Tartrate 100 MG TAB PO SCH ×2 (07:57→21:08)
[2019-03-13] MEDS: Lisinopril 20 MG TAB PO SCH (07:58)
[2019-03-13] MEDS: Famotidine 20 MG TAB PO SCH ×2 (07:59→21:08)
[2019-03-13] MEDS: Clopidogrel Bisulfate 75 MG TAB PO SCH (07:59)
[2019-03-13] MEDS: glipiZIDE 5 MG TAB PO SCH ×2 (08:00→15:56)
[2019-03-13] MEDS: Saccharomyces boulardii 250 MG CAP PO SCH (08:00)
[2019-03-13] MEDS: predniSONE 5 MG TAB PO SCH (08:00)
[2019-03-13] MEDS: hydrALAZINE 25 MG TAB PO SCH ×3 (08:01→21:08)
[2019-03-13] MEDS ORDERED: Fluconazole 100 MG TAB PO SCH (09:45)
[2019-03-13] MEDS: Nicotine 21 MG PATCH TD SCH (11:17)
--- NOTE | 2019-03-13 17:04 | EKG ---
Test Reason : Blood Pressure : / mmHG Vent. Rate : 093 BPM Atrial Rate : 093 BPM P-R Int : 144 ms QRS Dur : 086 ms QT Int : 382 ms P-R-T Axes : 051 -38 115 degrees QTc Int : 474 ms Normal sinus rhythm Left axis deviation Inferior infarct (cited on or before 27-AUG-2010) Anteroseptal infarct , age undetermined T wave abnormality, consider lateral ischemia Abnormal ECG When compared with ECG of 10-MAR-2019 06:21, Anteroseptal infarct is now Present Confirmed by BRODIE MENDOZA, DR. Baca ([id number]) on 03/13/2019 5:03:51 PM Referred By: Confirmed By:DR. Keven CALLOWAY MD
[2019-03-13] MEDS: cloNIDine 0.2 MG TAB PO PRN (17:12)
--- NOTE | 2019-03-13 18:26 | PDOC.HOSPP ---
- Subjective Encounter Date: 03/13/19 Encounter Time: 09:00 Subjective: Pt seen for followup re: C. difficile diarrhea. feels better today. - Objective Vital Signs & Weight: Vital Signs (12 hours) Temp Pulse Resp BP BP BP BP 03/13/19 17:12 99 F 98 20 195/99 H 195/99 H 03/13/19 15:57 81 135/74 03/13/19 11:51 98.1 F 81 18 135/74 03/13/19 10:51 87 16 03/13/19 10:06 172/81 H 170/79 H 03/13/19 08:01 84 210/84 H 03/13/19 08:00 03/13/19 07:58 210/84 H 03/13/19 07:26 98.9 F 84 20 210/84 H 03/13/19 07:17 86 16 Pulse Ox 03/13/19 17:12 96 03/13/19 15:57 03/13/19 11:51 98 03/13/19 10:51 96 03/13/19 10:06 03/13/19 08:01 03/13/19 08:00 94 L 03/13/19 07:58 03/13/19 07:26 94 L 03/13/19 07:17 95 Weight Weight 224 lb 3.362 oz Most Recent Monitor Data Heart Rate from ECG 99 NIBP 167/87 NIBP BP-Mean 113 Respiration from ECG 28 SpO2 92 I&O: 03/12/19 03/13/19 03/14/19 06:59 06:59 06:59 Intake Total 100 1240 Balance 100 1240 Result Diagrams: 03/13/19 04:54 03/13/19 04:54 Additional Labs: Accuchecks 03/13/19 03/13/19 03/13/19 17:00 11:07 04:13 POC Glucose 416 H 341 H 190 H 03/12/19 19:22 POC Glucose 325 H labs and MARs reviewed by me ROS - Review of Systems Respiratory: denies: cough, shortness of breath, SOB with excertion, pleuritic pain, wheezing Cardiovascular: denies: chest pain, palpitations, orthopnea, paroxysmal noc. dyspnea, edema, light headedness - Medication Medications: Active Medications Generic Name Dose Route Start Last Admin Trade Name Freq PRN Reason Stop Dose Admin Acetaminophen 650 mg 03/08/19 16:01 03/08/19 16:08 Tylenol PO 650 mg Q4H PRN Administration Headache/Fever or Pain Albuterol/Ipratropium 3 ml 03/09/19 07:00 03/13/19 14:27 Duoneb NEB Not Given [id number] HAIDER Clonidine 0.2 mg 03/10/19 02:14 03/13/19 17:12 Catapres PO 0.2 mg Q4H PRN Administration Hypertension Clopidogrel Bisulfate 75 mg 03/09/19 09:00 03/13/19 07:59 Plavix PO 75 mg DAILY HAIDER Administration Dextrose/Water 25 gm 03/06/19 10:47 03/06/19 13:02 Dextrose 50% SLOW IVP 25 gm PRN PRN Administration Hypoglycemia Famotidine 20 mg 03/09/19 09:00 03/13/19 07:59 Pepcid PO 20 mg Q12HR HAIDER Administration Fluconazole 150 mg 03/13/19 09:45 03/13/19 11:16 Diflucan PO 03/19/19 09:46 150 mg Q3D HAIDER Administration Glipizide 2.5 mg 03/12/19 16:30 03/13/19 15:56 Glucotrol PO 2.5 mg BID-AC HAIDER Administration Hydralazine HCl 25 mg 03/09/19 21:00 03/13/19 15:57 Apresoline PO 25 mg TID HAIDER Administration Insulin Human Lispro 0 units 03/10/19 10:24 03/13/19 17:13 Humalog SC 10 unit .MODERATE SLIDING SC PRN Administration Moderate Correctional Scale Isosorbide Mononitrate 30 mg 03/12/19 09:00 03/13/19 07:59 Imdur Er PO 30 mg DAILY HAIDER Administration Lisinopril 40 mg 03/09/19 09:00 03/13/19 07:58 Zestril PO 40 mg DAILY HAIDER Administration Metoprolol Tartrate 100 mg 03/08/19 21:00 03/13/19 07:57 Lopressor PO 100 mg BID HAIDER Administration Morphine Sulfate 4 mg 03/09/19 03:57 03/12/19 06:20 Roxanol Solution SL 4 mg Q4H PRN Administration Pain Nicotine 21 mg 03/06/19 12:00 03/13/19 11:17 Nicoderm Patch TD 21 mg Q24HR HAIDER Administration Nitroglycerin 0.4 mg 03/11/19 10:55 03/11/19 13:44 Nitrostat SL 0.4 mg Q5MIN PRN Administration Chest Pain Pantoprazole Sodium 40 mg 03/08/19 21:00 03/12/19 21:08 Protonix PO 40 mg HS HAIDER Administration Prednisone 10 mg 03/10/19 08:00 03/13/19 08:00 Prednisone PO 10 mg QAM-WM HAIDER Administration Promethazine HCl 12.5 mg 03/07/19 08:16 03/08/19 19:42 Phenergan IM/IV 12.5 mg Q6H PRN Administration Nausea/Vomiting Ranolazine 500 mg 03/11/19 21:00 03/13/19 07:59 Ranexa PO 500 mg BID HAIDER Administration Saccharomyces Boulardii 250 mg 03/11/19 09:00 03/13/19 08:00 Florastor PO 250 mg DAILY HAIDER Administration Vancomycin HCl 250 mg 03/10/19 12:00 03/13/19 17:12 First Vancomycin PO 250 mg Q6H HAIDER Administration Venlafaxine HCl 75 mg 03/08/19 21:00 03/13/19 08:00 Effexor PO 75 mg BID HAIDER Administration - Exam NAD Eye: anicteric sclera ENT: normocephalic atraumatic, moist mucosa Neck: supple, no lymphadenopathy Heart: RRR Respiratory: no wheezes, no rales Gastrointestinal: soft, non-tender Skin: normal turgor Psychiatric: normal affect, normal behavior Hosp A/P (1) Clostridium difficile diarrhea Code(s): A04.72 - ENTEROCOLITIS D/T CLOSTRIDIUM DIFFICILE, NOT SPCF RECUR Status: Acute (2) Acute metabolic encephalopathy Code(s): G93.41 - METABOLIC ENCEPHALOPATHY Status: Acute (3) Dyslipidemia Code(s): E78.5 - HYPERLIPIDEMIA, UNSPECIFIED Status: Chronic (4) GERD (gastroesophageal reflux disease) Code(s): K21.9 - GASTRO-ESOPHAGEAL REFLUX DISEASE WITHOUT ESOPHAGITIS Status: Chronic (5) Hypertension Code(s): I10 - ESSENTIAL (PRIMARY) HYPERTENSION Status: Chronic (6) Obesity (BMI 30.0-34.9) Code(s): E66.9 - OBESITY, UNSPECIFIED Status: Chronic (7) Sepsis Code(s): A41.9 - SEPSIS, UNSPECIFIED ORGANISM Status: Ruled-out (8) Hypoglycemia Code(s): E16.2 - HYPOGLYCEMIA, UNSPECIFIED Status: Resolved - Plan plan discussed w/ family, PT/OT, out of bed/ambulate On enteral vancomycin and Florastor. Encephalopathy - likely behavioural component. Continue Lipitor [facility] recommended Inpatient psychiatry. Await bed at psychiatric facility.
[2019-03-13] MEDS: Nystatin Cream 15 GM TUBE TOP SCH (21:13)
[2019-03-13] MEDS: Morphine 10 MG/0.5 ML ORAL SYRINGE SL PRN (23:04)
[2019-03-14] MEDS: Vancomycin HCl 25 MG/ML Oral PO SCH ×2 (05:36→12:00)
[2019-03-14] MEDS: HumaLOG 300 UNITS/3 ML VIAL SC PRN ×2 (05:38→11:58)
[2019-03-14 06:29] LABS: #Basophils 0.1 thou/uL (0.0-0.2); #Eosinphils 0.1 thou/uL (0.0-0.7); #Lymphocytes 2.4 thou/uL (1.20-3.40); #Monocytes 0.6 thou/uL (0.11-0.59); #Neutrophils 3.6 thou/uL (1.40-6.50); %Basophils 1.1 % (0.0-1.0); %Eosinophils 1.3 % (0.0-10.0); %Lymphocytes 35.6 % (21.0-51.0); %Monocytes 9.2 % (0.0-10.0); %Neutrophils 52.8 % (42.0-75.0); Hemoglobin 11.8 g/dL (12.0-16.0); Mean Corpuscular HGB CONC 35.3 g/dL (32.0-36.0); Mean Corpuscular Hemoglobin 30.7 pg (27.0-31.0); Mean Corpuscular Volume 86.9 fL (78.0-98.0); Mean Platelet Volume 7.1 fL (7.4-10.4); Platelet Count 238 thou/uL (130-400); Red Blood Cell (RBC) Count 3.86 mill/uL (4.20-5.40); White Blood Cell (WBC) Count 6.8 thou/uL (4.8-10.8)
[2019-03-14 06:50] LABS: Anion Gap 13 mmol/L (10-20); BUN (Urea Nitrogen) 17 mg/dL (7.0-18.7); Calc. Creatinine Clearance 131 mL/min (70-130); Calcium 8.5 mg/dL (7.8-10.44); Carbon Dioxide 26 mmol/L (22-29); Chloride 100 mmol/L (98-107); Estimated GFR-MDRD 74; Glucose 179 mg/dL (70-105); Potassium 3.8 mmol/L (3.5-5.1); Sodium 135 mmol/L (136-145)
[2019-03-14] MEDS: predniSONE 5 MG TAB PO SCH (07:59)
[2019-03-14] MEDS: Saccharomyces boulardii 250 MG CAP PO SCH (07:59)
[2019-03-14] MEDS: Metoprolol Tartrate 100 MG TAB PO SCH (07:59)
[2019-03-14] MEDS: Famotidine 20 MG TAB PO SCH (08:00)
[2019-03-14] MEDS: Clopidogrel Bisulfate 75 MG TAB PO SCH (08:00)
[2019-03-14] MEDS: glipiZIDE 5 MG TAB PO SCH (08:01)
[2019-03-14] MEDS: Nystatin Cream 15 GM TUBE TOP SCH (09:53)
[2019-03-14] MEDS: Lisinopril 20 MG TAB PO SCH (09:55)
[2019-03-14] MEDS: hydrALAZINE 25 MG TAB PO SCH (09:55)
[2019-03-14] MEDS: Nicotine 21 MG PATCH TD SCH (11:54)
[2019-03-14 15:02] VITALS: BP 128/69; TEMP 98.8
--- NOTE | 2019-03-14 21:55 | DIS ---
DATE OF ADMISSION: 03/06/2019 DATE OF DISCHARGE: 03/14/2019 PRIMARY CARE PROVIDER: Dr. Francisco Eden. DISCHARGE DIAGNOSES: 1. Sepsis. 2. Acute respiratory failure with hypoxia and hypercapnia. 3. Toxic metabolic encephalopathy. 4. Aspiration pneumonia. 5. Suspected suicide attempt. 6. Suspected aortic dissection. 7. Clostridium difficile diarrhea. CONSULTATIONS DURING THIS HOSPITALIZATION: 1. Pulmonary and Critical Care Medicine, Dr. Gray. 2. Neurology, Dr. Duque. 3. [facility]. CONDITION OF PATIENT ON THE DAY OF DISCHARGE: Stable. I assessed Ms. Rivera on the day of discharge. She denies any chest pain or shortness of breath. Vital signs are stable. S1 and S2 are heard, regular. Lungs are clear to auscultation bilaterally. DISCHARGE MEDICATIONS: 1. Lipitor 80 mg at bedtime. 2. Plavix 75 mg daily. 3. Lisinopril 40 mg daily. 4. Lopressor 100 mg 2 times a day. 5. Venlafaxine 75 mg 2 times a day. 6. Nicotine 21 mg patch daily. 7. Glipizide 2.5 mg 2 times a day. 8. Apresoline 25 mg 3 times a day. 9. Imdur 30 mg daily. 10. Ranexa 500 mg 2 times a day. 11. Florastor 250 mg daily for 10 days. 12. Vancomycin 250 mg orally 4 times a day for 10 days. HOSPITAL COURSE: Ms. Rivera is a pleasant 48-year-old lady, who was admitted to [facility] on March 06, 2019, for sepsis and acute respiratory failure. Please refer to my history and physical note dated March 06, 2019. She was initially intubated, subsequently extubated and treated with BiPAP. She improved clinically and was transferred out of the critical care unit. She continued to have episodes of cognitive impairment. Neurology Service was consulted. MRI of the brain did not show any acute intracranial abnormality. She had mild chronic small-vessel ischemic changes with tiny cavitated infarction in the left cerebellar hemisphere. Neurology Service recommended [facility] consult. She also had diarrhea and was found to be positive for Clostridium difficile. She has been started on vancomycin therapy. [facility] initially evaluated her because of concern that her presentation may have been a suicide attempt with insulin overdose. They initially recommended inpatient hospitalization. They re-evaluated her on March 14, 2019. The patient's mother wanted to take her home. The patient did not have suicidal or homicidal ideation. [facility] came up with a safety plan and recommended discharge to home. I am discharging her home in a stable condition. Her blood sugars were high during this hospitalization. The patient and family did not wish to have metformin or insulin by sliding scale. She has been started on glipizide. Many thanks for allowing me to participate in your patient's care. Please feel free to contact me with any questions or concerns. FOLLOWUP APPOINTMENTS: She has been advised to follow up with her primary care provider in 3 days time. DISCHARGE DESTINATION: Home. TIME SPENT: Total amount of time spent coordinating this discharge: 33 minutes. Job ID: [id number]
== END 2019-03-14 15:09 | disposition home or self-care (01) | DRG 208 ==
LOC: ERS 05:55 → CCU 07:50 → ONC 03-08 22:55 → T4-A 03-09 18:49
PROVIDERS: ADMIT Family Medicine; ATTEND Family Medicine
PROC: 0BH17EZ Insertion of Endotracheal Airway into Trachea, Via Natural or Artificial Opening (ICD-10-PCS; principal; 2019-03-06)
PROC: 5A1935Z Respiratory Ventilation, Less than 24 Consecutive Hours (ICD-10-PCS; 2019-03-06)
DX: J96.01 Acute respiratory failure with hypoxia (principal); A41.9 Sepsis, unspecified organism; G92 Toxic encephalopathy; J69.0 Pneumonitis due to inhalation of food and vomit; I71.00 Dissection of unspecified site of aorta; A04.72 Enterocolitis due to Clostridium difficile, not specified as recurrent; E78.5 Hyperlipidemia, unspecified; I10 Essential (primary) hypertension; E11.649 Type 2 diabetes mellitus with hypoglycemia without coma; M79.7 Fibromyalgia; J96.02 Acute respiratory failure with hypercapnia; Z51.5 Encounter for palliative care; Z66 Do not resuscitate; B19.20 Unspecified viral hepatitis C without hepatic coma; Z90.49 Acquired absence of other specified parts of digestive tract; F32.9 Major depressive disorder, single episode, unspecified; F41.9 Anxiety disorder, unspecified; F17.210 Nicotine dependence, cigarettes, uncomplicated; I25.10 Atherosclerotic heart disease of native coronary artery without angina pectoris; G89.4 Chronic pain syndrome; E66.9 Obesity, unspecified; Z90.710 Acquired absence of both cervix and uterus; Z95.5 Presence of coronary angioplasty implant and graft; Z68.33 Body mass index [BMI] 33.0-33.9, adult; T14.91XA Suicide attempt, initial encounter
CPT/HCPCS: 36415; 36416; 70450; 70551; 71045; 71275; 74177; 80048; 80053; 80076; 80306; 80307; 82330; 82553; 82803; 82805; 83605; 83690; 83735; 84439; 84443; 84481; 84484; 85025; 85610; 86850; 86900; 86901; 87040; 87086; 87324; 87449; 93005; 93010; 94002; 94640; 94660; J0360; J0692; J1100; J1170; J1885; J2270; J2550; J3010; J3480; J3486; J3490; J7050; J7512; J7611; J7620; Q9966; S0028

== ENCOUNTER 2019-08-15 10:42 | Outpatient (CLI) | payer OTHER ==
--- NOTE | 2019-08-15 11:36 | MRI ---
MRI of the thoracic spine without contrast: 08/15/2019 COMPARISON: None HISTORY: Chronic pain, thoracic spine pain TECHNIQUE: Multiplanar multisequence MR imaging of the thoracic spine is obtained without contrast. FINDINGS: The sagittal STIR imaging demonstrates no focal area of osseous marrow edema. At the T1-2, T2-3, T3-4, T4-5, T5-6, T6-7, and T7-8 there is no significant central canal or neural f oraminal stenosis. T8-9: There is disc space narrowing and disc desiccation with a small left paracentral disc protrusio n causing no associated central canal or neural foraminal stenosis. T9-10: There is disc desiccation and disc space narrowing. There is a small disc protrusion in the le ft paracentral/left foraminal region with a small associated osteophyte. This causes a mild degree of central canal stenosis laterally on the right. No significant neural foraminal stenosis. At T10-11, T11-12, and T12-L1 there is no significant central canal or neural foraminal stenosis. There is no focal area of abnormal signal intensity identified within the thoracic cord. IMPRESSION: Degenerative changes noted at T8-9 and T9-10. No significant central canal or neural fora rashel stenosis.
== END 2019-08-15 10:43 | disposition home or self-care (01) ==
LOC: TBSIIMAG 10:42
PROVIDERS: ATTEND Neurological Surgery
DX: M54.6 Pain in thoracic spine (principal); M54.5 Low back pain; M47.814 Spondylosis without myelopathy or radiculopathy, thoracic region
CPT/HCPCS: 72146